=== PATIENT | male | born 1965 | race Caucasian/White ===

== ENCOUNTER 2023-08-15 14:33 | Outpatient (AMB) | payer BC, SELFPAY ==
--- NOTE | 2023-08-15 14:41 | A.OFFPC_ITS ---
Vital Signs 08/15/23 14:53 08/15/23 15:05 Height 5 ft 7.56 in Weight 263 lb 2 oz BMI 40.5 BP 158/86 H 148/86 H Blood Pressure Location Rt brachial Rt brachial Position Sitting Sitting Respiration 14 Pulse 99 Pulse Source Pulse Oximeter Pulse Oximetry (%) 96 Oxygen Delivery Method Room Air Intake Visit Reasons: EST CARE Intake Note: New patient visit Teletype Telegrapher Required: No Allergies No Known Allergies Allergy (Verified 08/15/23 14:41) Tobacco use date assessed: 08/15/23 Dental Screening Dental Screen Date: 08/15/23 Did you have a dental visit in the last 12 months?: No Did you have a dental problem in the last 6 months where you did not have access to dental care?: No Was dental information given to patient?: Yes HPI HPI Comments History of Present Illness Details The patient is a 58 year old male with a past medical history of prediabetes, hypertension, GERD/PUD, OA, insomnia, presenting for follow up Depression/Insomnia-On cymbalta 60mg daily. Tried trazodone. Diabetes-On metformin 1000mg daily. A1C 5.7% Cardiovascular -On metformin 1000mg daily. A1C 5.7%. Asthma-On symbicort 160/4.5 Tdap 07/2016 Colonoscopy 09/09/2016 [facility] Medical History (Updated 08/15/23 @ 15:42 by Jovanna Dahl MD) Type 2 diabetes mellitus Steatosis, liver Severe obesity Reactive airway disease Intervertebral disc disorder Lumbar radiculopathy Prediabetes Obstructive sleep apnea H/O peptic ulcer GERD (gastroesophageal reflux disease) Depression Benign essential HTN Asthma Arthritis Surgical History (Updated 08/15/23 @ 15:02 by Fiorella Ledezma CMA) History of bilateral knee replacement Family History (Updated 08/15/23 @ 15:04 by Fiorella Ledezma CMA) Mother Diabetes mellitus Kidney disease HTN (hypertension) Hypercholesteremia Father Heart attack HTN (hypertension) Hypercholesteremia Social History (Updated 08/15/23 @ 14:45 by Fiorella Ledezma CMA) Housing: House Patient Tobacco Use Status: Former Tobacco user Tobacco use type: Cigarette Years Smoked: Casual smoker e-Cigarette/Vaping Use: Never Used Second Hand Smoke Exposure: No Substance Use Type: Marijuana service: No Current occupational status: employed and retired Cognitive needs: No Hearing needs: Yes (tinnitus) Vision needs: Yes (reading glasses) Questionnaire PHQ-9 Over the last 2 weeks, how often have you been bothered by any of the following problems? 1. Little interest or pleasure in doing things: not at all 2. Feeling down, depressed, or hopeless: more than half the days 3. Trouble falling or staying asleep, or sleeping too much: several days 4. Feeling tired or having little energy: not at all 5. Poor appetite or overeating: not at all 6. Feeling bad about yourself - or that you are a failure or have let yourself or your family down: more than half the days 7. Trouble concentrating on things, such as reading the newspaper or watching television: not at all 8. Moving or speaking so slowly that other people could have noticed. Or the opposite - being so fidgety or restless that you have been moving around a lot more than usual: not at all 9. Thoughts that you would be better off or of hurting yourself in some way: not at all Total score: 5 Depression Screening Interpretation: Positive Depression Screening Done: Yes 27860 - PHQ-9 Billing: Yes Source: Developed by Drs. Jay Jauregui, Marisol Hobbs, Jaren Mari and colleagues, with an educational clive from [employer]. Thrive Questionnaire Date Thrive assessed: 08/15/23 I am a: Patient What is your living situation today?: I have a steady place to live Within the past 12 months, did the food you bought not last and you didn't have the money to get more?: Never true Within the past 12 months, did you worry whether your food would run out before you got money to buy more?: Never true Do you have trouble paying for medicines?: No Do you have trouble getting transportation to medical appointments?: No Do you have trouble paying your heating and electricity bill?: No Do you have trouble taking care of your child, family member or friend?: No Do you have trouble with day-to-day activities such as bathing, preparing meals, shopping, managing finances, etc.?: No Are you currently unemployed and looking for a job?: Yes Are you interested in more education?: No Please select the resources that you would like help with: Job search/training Currently or been in a relationship where the following occur: No concerns reported THRIVE Score: 0 AUDIT C Alcohol Use Questionnaire (AUDIT-C) 1. How often do you have a drink containing alcohol?: 4 or more times a week 2. How many drinks containing alcohol do you have on a typical day when you are drinking?: 5 or 6 3. How often do you have six or more drinks on one occasion?: Daily or almost daily Total Score: 10 MAGDALENA-7 AMB Questionnaire MAGDALENA-7 Date MAGDALENA - 7 assessed: 08/15/23 Feeling nervous, anxious, or on edge: 1 = Several days Not being able to stop or control worryin = Several days Worrying too much about different things: 1 = Several days Trouble relaxin = Several days Being so restless that it is hard to sit still: 0 = Not at all Becoming easily annoyed or irritable: 1 = Several days Feeling afraid as if something awful might happen: 0 = Not at all Total MAGDALENA-7 score (0-4 normal; 5-9 mild; 10-14 moderate; 15-21 severe): 5 Source: Developed by Drs. Jay Jauregui, Marisol Hobbs, Jaren Mari and colleagues, with an educational clive from [employer]. MAGDALENA-7 Assessment Billing MAGDALENA-7 Assessment Tool: MAGDALENA-7 Assessment 76379 ACT Questionnaire In the past 4 weeks, how much of the time did your asthma keep you from getting as much done at work, school or at home?: None of the time During the past 4 weeks, how often have you had shortness of breath?: Not at all During the past 4 weeks, how often did your asthma symptoms wake you up at night or earlier than usual in the morning?: Not at all During the past 4 weeks, how often have you had to use your rescue inhaler or nebulizer medication?: Not at all How would you rate your asthma control during the past 4 weeks?: Completely controlled ACT Interpretation: Negative Score: 25 Physical exam (Primary Care) Vital Signs: Last Vital Signs Pulse 99 08/15/23 14:53 Resp 14 08/15/23 14:53 BP 148/86 H 08/15/23 15:05 Pulse Ox 96 08/15/23 14:53 Oxygen Delivery Method Room Air 08/15/23 14:53 BMI result Body Mass Index 40.5 Tobacco/Smoking Status: Tobacco use Status Tobacco use date assessed 08/15/23 08/15/23 15:06 Patient Tobacco Use Status Former Tobacco user 08/15/23 15:06 Tobacco use type Cigarette 08/15/23 15:06 e-Cigarette/Vaping Use Never Used 08/15/23 15:06 PHQ-9: PHQ-9 Score PHQ-9: Total score 5 08/15/23 16:42 Depression Screening Interpretation: Positive Thrive Assessment: Date of Thrive Assessment Date Thrive assessed 08/15/23 08/15/23 15:06 Currently or been in a relationship where the following occur: No concerns reported Results AMB Hemoglobin A1c AMB Hemoglobin A1c 6.1 % Last Edit by Fiorella Ledezma CMA on 08/15/23 16:43 Results Reviewed Results Reviewed: Laboratory Last Values Hgb A1c (Clinic) 6.1 % (4.0-6.0) H 08/15/23 16:41 Assessment and Plan Assessment & Plan Orders: Orders AMB Hemoglobin A1c 08/15/23 E11.9 - Type 2 diabetes mellitus without complications Referrals Urology Referral N48.6 - Induration penis plastica Medications: New duloxetine 120 mg (2 x 60 mg) PO DAILY 180 caps 3RF 90 days budesonide-formoterol 160-4.5 mcg/actuation (Breyna) 2 puffs inhalation BID 30.6 grams 3RF celecoxib 200 mg PO DAILY 90 caps 3RF 90 days montelukast 10 mg PO DAILY 90 tabs 3RF 90 days omeprazole 20 mg PO DAILY 90 caps 3RF 90 days lisinopril 20 mg PO DAILY 90 tabs 3RF 90 days cyclobenzaprine 10 mg (2 x 5 mg) PO .nightly PRN 60 tabs 11RF muscle spasm 30 days metformin ER 500 mg PO BID 180 tabs 3RF 90 days tirzepatide (Mounjaro) 2.5 mg (0.5 mL) subcut QWEEK 2 mL 0RF 4 weeks ondansetron 4 mg PO Q8H PRN 60 tabs 0RF nausea and vomiting 30 days Refilled lorazepam 0.5 mg PO BID PRN 60 tabs 0RF anxiety 30 days rosuvastatin 10 mg PO DAILY 90 tabs 3RF 90 days hydrochlorothiazide 50 mg PO DAILY 90 tabs 3RF Coding Level of Care Code Est Pt Level 5 (76649) Complex EM visit Add On G2211 Additional Codes MAGDALENA-7 Assessment Billing - MAGDALENA-7 Assessment Tool: MAGDALENA-7 Assessment 48026 ([id number]) Time Spent (min) 55
[2023-08-15 14:53] VITALS: BP 158/86; PULSE 99; RESP 14; O2SAT 96; BMI 40.5
[2023-08-15 15:05] VITALS: BP 148/86
== END 2023-08-15 16:30 | disposition home or self-care (01) ==
PROVIDERS: Visit Provider Internal Medicine
DX: E11.9 Type 2 diabetes mellitus without complications (principal)
CPT/HCPCS: 83036; 99215

== ENCOUNTER 2023-10-15 15:31 | Outpatient (AMB) | payer BC, SELFPAY ==
--- NOTE | 2023-10-15 15:38 | MHC.OFFVIS ---
Intake Visit Reasons: Peyronies disease Intake Note: New patient is present for Peyronies Disease Recent A1C- 6.1 Wood Preparation Supervisor Required: No Allergies No Known Allergies Allergy (Verified 08/15/23 14:41) Medication List - Last Reconciled 10/15/23 by Antony Chow MD blood sugar diagnostic (Pinion.ggTouch Ultra Test strips) As directed budesonide-formoterol 160-4.5 mcg/actuation (Breyna) 2 puffs inhalation BID celecoxib 200 mg PO DAILY 90 days cyclobenzaprine 10 mg (2 x 5 mg) PO .nightly PRN 30 days duloxetine 120 mg (2 x 60 mg) PO DAILY 90 days hydrochlorothiazide 50 mg PO DAILY lisinopril 20 mg PO DAILY 90 days lorazepam 0.5 mg PO BID PRN 30 days metformin ER 500 mg PO BID 90 days montelukast 10 mg PO DAILY 90 days omeprazole 20 mg PO DAILY 90 days ondansetron 4 mg PO Q8H PRN 30 days pentoxifylline ER 400 mg PO BID 90 days rosuvastatin 10 mg PO DAILY 90 days tadalafil 5 mg PO DAILY 90 days tirzepatide (Mounjaro) 5 mg (0.5 mL) subcut QWEEK vitamin E (dl, acetate) 450 mg PO DAILY 90 days HPI Comments Details: Dale is a pleasant male. He is a patient of Dr. Dahl. He is seen for the following urologic conditions - Peyronie's disease Initial evaluation for complaint of Peyronie's disease Peyronie's disease Primary complaint is - penile curvature with some degree of erectile dysfunction. Is able to obtain erection but can not maintain The problem has been present - starting 2020 At this time his erections - as sufficient for penetrative intercourse. Does not last till ejaculation. [place] has - can be completed but with some degree of limitation Associated symptoms include penile pain resolved penile discharge No Associated conditions - type 2 diabetes Evaluations - palpable plaque at base on dorsal surface. Planned penile ultrasound Prior management includes - Therapeutic plan - conservative therapy with antioxidants and penile pump - pump demonstrated in office [facility] Medical History (Updated 10/15/23 @ 16:44 by Antony Chow MD) Type 2 diabetes mellitus Steatosis, liver Severe obesity Reactive airway disease Intervertebral disc disorder Lumbar radiculopathy Prediabetes Obstructive sleep apnea H/O peptic ulcer GERD (gastroesophageal reflux disease) Depression Benign essential HTN Asthma Arthritis Surgical History (Updated 08/15/23 @ 15:02 by Fiorella Ledezma CMA) History of bilateral knee replacement Family History (Updated 08/15/23 @ 15:04 by Fiorella Ledezma CMA) Mother Diabetes mellitus Kidney disease HTN (hypertension) Hypercholesteremia Father Heart attack HTN (hypertension) Hypercholesteremia Social History (Updated 08/15/23 @ 14:45 by Fiorella Ledezma CMA) Housing: House Patient Tobacco Use Status: Former Tobacco user Tobacco use type: Cigarette Years Smoked: Casual smoker e-Cigarette/Vaping Use: Never Used Second Hand Smoke Exposure: No Substance Use Type: Marijuana service: No Current occupational status: employed and retired Cognitive needs: No Hearing needs: Yes (tinnitus) Vision needs: Yes (reading glasses) Review of Systems Const Denies chills and Denies fever(s) Card Reports no additional complaints and Denies syncope Resp Denies cough GI Denies abdominal pain and Denies heartburn Reports as per HPI and Denies change in libido Neuro Denies syncope Psych Denies change in libido Endo Denies change in libido Physical Exam Const General: cooperative, healthy appearing, comfortable and no acute distress Orientation/consciousness: patient oriented x3 HEENT Face and sinus: Yes normal facial exam Mouth: moist mucous membranes Neck Neck: Yes normal visual inspection, Yes full ROM and Yes trachea midline Chest Chest palpation & inspection: normal inspection of the chest Resp Effort & Inspection: normal respiratory effort, able to speak in complete sentences and no respiratory distress GI Inspection: Yes normal to inspection Back/Spine/Pelvis Cervical Spine: normal cervical lordosis Thoracic/Lumbar Spine: thoracic and lumbar spine normal to inspection Skin General skin exam: no rashes or lesions noted Neuro General: patient oriented x3, gait normal, tone normal and moves all extremities Extrem General: Yes normal to inspection and Yes capillary refill normal Assessment & Plan Assessment & Plan (1) Peyronie's disease: Code(s): N48.6 - Induration penis plastica Category: Medical (2) Erectile dysfunction associated with type 2 diabetes mellitus: Code(s): E11.69 - Type 2 diabetes mellitus with other specified complication; N52.1 - Erectile dysfunction due to diseases classified elsewhere Category: Medical Plan Plan penile ultrasound Initiate tadalafil, pentoxifylline and vitamin-E Six-month follow-up Link for vacuum pump provided Orders: Orders US penile Today N48.6 - Induration penis plastica Medications: New tadalafil 5 mg PO DAILY 90 days 90 tabs 1RF sexual activity N32.0 - Bladder-neck obstruction, N48.6 - Induration penis plastica, N52.01 - Erectile dysfunction due to arterial insufficiency pentoxifylline ER administer with meals 400 mg PO BID 90 days 180 tabs 1RF N48.6 - Induration penis plastica vitamin E (dl, acetate) 450 mg PO DAILY 90 days 90 caps 1RF N30.40 - Irradiation cystitis without hematuria, N48.6 - Induration penis plastica Coding Level of Care Code New Pt Level 4 (00884) Diagnoses Peyronie's disease N48.6 Erectile dysfunction associated with type 2 diabetes mellitus E11.69; N52.1
== END 2023-10-15 16:26 | disposition home or self-care (01) ==
PROVIDERS: PCP Internal Medicine; Visit Provider Urology
DX: N48.6 Induration penis plastica (principal); E11.69 Type 2 diabetes mellitus with other specified complication; N52.1 Erectile dysfunction due to diseases classified elsewhere
CPT/HCPCS: 99204

== ENCOUNTER → 2023-10-15 15:31 | Outpatient (BNVA) | payer BC, SELFPAY | PROVIDERS: PCP Internal Medicine; Visit Provider Urology ==

== ENCOUNTER 2024-01-19 08:55 | Outpatient (AMB) | payer BC, SELFPAY ==
--- NOTE | 2024-01-19 09:05 | A.OFFPC_ITS ---
Vital Signs 01/19/24 09:12 Height 5 ft 7.56 in Weight 265 lb BMI 40.8 BP 138/74 Blood Pressure Location Rt brachial Position Sitting Pulse 92 Pulse Source Pulse Oximeter Pulse Oximetry (%) 96 Oxygen Delivery Method Room Air Intake Visit Reasons: follow up Intake Note: Follow up Retail Assistant Required: No Allergies No Known Allergies Allergy (Verified 01/19/24 09:12) Tobacco use date assessed: 08/15/23 Dental Screening Dental Screen Date: 08/15/23 HPI HPI Comments History of Present Illness Details The patient is a 58 year old male with a past medical history of prediabetes, hypertension, GERD/PUD, OA, insomnia, presenting for follow up Depression/Insomnia-On cymbalta. Has lorazepam prn anxiety, sleep Diabetes-On mounjaro. A1C has been excellent. A1C 5.7%. Gets eye exams-utd Cardiovascular -On lisinopril, crestor, hctz Urologic-Following with [facility] urology for PD Asthma-On breyna. Breathing is stable. Tdap 07/2016 Colonoscopy 09/09/2016 ROS CONSTITUTIONAL: Denies weight loss, fever and chills. HEENT: Denies changes in vision and hearing. RESPIRATORY: Denies SOB and cough. CV: Denies palpitations and CP GI: Denies abdominal pain, nausea, vomiting and diarrhea. : Denies dysuria and urinary frequency. MSK: Denies new myalgia and joint pain. SKIN: Denies rash and pruritus. NEUROLOGICAL: Denies headache PSYCHIATRIC: Denies recent changes in mood. PHYSICAL EXAM: GENERAL: Alert and oriented x 3. NAD EYES: EOMI. Anicteric. HENT: Moist mucous membranes. No scleral icterus. No cervical lymphadenopathy. LUNGS: Clear to auscultation bilaterally. CARDIOVASCULAR: Regular rate and rhythm. No murmur. No JVD. ABDOMEN: Soft, non-tender +bs EXTREMITIES: No edema. Non-tender. SKIN: No rashes or lesions. Warm. NEUROLOGIC: No focal neurological deficits. CN II-XII grossly intact PSYCHIATRIC: Cooperative. Appropriate mood and affect [facility] Medical History (Updated 01/26/24 @ 00:58 by Jovanna Dahl MD) Type 2 diabetes mellitus Steatosis, liver Severe obesity Reactive airway disease Intervertebral disc disorder Lumbar radiculopathy Prediabetes Obstructive sleep apnea H/O peptic ulcer GERD (gastroesophageal reflux disease) Depression Benign essential HTN Asthma Arthritis Surgical History (Updated 08/15/23 @ 15:02 by Fiorella Ledezma CMA) History of bilateral knee replacement Family History (Updated 08/15/23 @ 15:04 by Fiorella Ledezma CMA) Mother Diabetes mellitus Kidney disease HTN (hypertension) Hypercholesteremia Father Heart attack HTN (hypertension) Hypercholesteremia Social History (Updated 08/15/23 @ 14:45 by Fiorella Ledezma CMA) Housing: House Patient Tobacco Use Status: Former Tobacco user Tobacco use type: Cigarette Years Smoked: Casual smoker e-Cigarette/Vaping Use: Never Used Second Hand Smoke Exposure: No Substance Use Type: Marijuana service: No Current occupational status: employed and retired Cognitive needs: No Hearing needs: Yes (tinnitus) Vision needs: Yes (reading glasses) Questionnaire Thrive Questionnaire Date Thrive assessed: 01/14/24 I am a: Patient What is your living situation today?: I have a steady place to live Within the past 12 months, did the food you bought not last and you didn't have the money to get more?: I choose not to answer this question Within the past 12 months, did you worry whether your food would run out before you got money to buy more?: I choose not to answer this question Do you have trouble paying for medicines?: I choose not to answer this question Do you have trouble getting transportation to medical appointments?: I choose not to answer this question Do you have trouble paying your heating and electricity bill?: I choose not to answer this question Do you have trouble taking care of your child, family member or friend?: I choose not to answer this question Do you have trouble with day-to-day activities such as bathing, preparing meals, shopping, managing finances, etc.?: I choose not to answer this question Are you currently unemployed and looking for a job?: I choose not to answer this question Are you interested in more education?: I choose not to answer this question Please select the resources that you would like help with: None Currently or been in a relationship where the following occur: I choose not to answer THRIVE Score: 0 AUDIT C Alcohol Use Questionnaire (AUDIT-C) 1. How often do you have a drink containing alcohol?: Never 2. How many drinks containing alcohol do you have on a typical day when you are drinking?: 1 or 2 3. How often do you have six or more drinks on one occasion?: Never Total Score: 0 MAGDALENA-7 AMB Questionnaire MAGDALENA-7 Date MAGDALENA - 7 assessed: 08/15/23 Feeling nervous, anxious, or on edge: 3 = Nearly every day Not being able to stop or control worryin = Not at all Worrying too much about different things: 0 = Not at all Trouble relaxin = Not at all Being so restless that it is hard to sit still: 0 = Not at all Becoming easily annoyed or irritable: 0 = Not at all Feeling afraid as if something awful might happen: 0 = Not at all Total MAGDALENA-7 score (0-4 normal; 5-9 mild; 10-14 moderate; 15-21 severe): 3 Source: Developed by Drs. Jay Jauregui, Marisol Hobbs, Jaren Mari and colleagues, with an educational clive from [employer]. Physical exam (Primary Care) Vital Signs: Last Vital Signs Pulse 92 01/19/24 09:12 BP 138/74 01/19/24 09:12 Pulse Ox 96 01/19/24 09:12 Oxygen Delivery Method Room Air 01/19/24 09:12 BMI result Body Mass Index 40.8 Tobacco/Smoking Status: Tobacco use Status Tobacco use date assessed 08/15/23 01/19/24 09:06 Patient Tobacco Use Status Former Tobacco user 01/19/24 09:06 Tobacco use type Cigarette 01/19/24 09:06 e-Cigarette/Vaping Use Never Used 01/19/24 09:06 Thrive Assessment: Date of Thrive Assessment Date Thrive assessed 01/14/24 01/19/24 09:06 Currently or been in a relationship where the following occur: I choose not to answer Coding Level of Care Code Est Pt Level 4 (76110) Diagnoses Type 2 diabetes mellitus with other circulatory complication, without long-term current use of insulin E11.59 Diabetes mellitus complication detail: with other circulatory complications Diabetes mellitus complication status: with circulatory complication Diabetes mellitus fpc insulin use: without fpc use Erectile dysfunction associated with type 2 diabetes mellitus E11.69; N52.1 Severe obesity E66.01 Assessment & Plan Assessment & Plan (1) Type 2 diabetes mellitus: Code(s): E11.9 - Type 2 diabetes mellitus without complications Category: Medical Qualifiers: Diabetes mellitus complication detail: with other circulatory complications Diabetes mellitus complication status: with circulatory complication Diabetes mellitus terminologist insulin use: without terminologist use Qualified Code(s): E11.59 - Type 2 diabetes mellitus with other circulatory complications Plan: controlled on current medicaitons Efforts toward weight loss Annual eye exams (2) Erectile dysfunction associated with type 2 diabetes mellitus: Code(s): E11.69 - Type 2 diabetes mellitus with other specified complication; N52.1 - Erectile dysfunction due to diseases classified elsewhere Category: Medical Plan: continue urology follow up (3) Severe obesity: Code(s): E66.01 - Morbid (severe) obesity due to excess calories Category: Medical Plan: Continue GLP therapy Orders: Orders Comprehensive Met. Panel 01/19/24 E11.9 - Type 2 diabetes mellitus without complications Complete Blood Count Auto Diff 01/19/24 E11.9 - Type 2 diabetes mellitus without complications Hemoglobin A1c 01/19/24 E11.9 - Type 2 diabetes mellitus without complications AMB Hemoglobin A1c 01/19/24 E11.9 - Type 2 diabetes mellitus without complications Medications: New Mounjaro (tirzepatide) 7.5 mg (0.5 mL) subcut QWEEK 6 mL 3RF 12 weeks NS E11.9 - Type 2 diabetes mellitus without complications
[2024-01-19 09:12] VITALS: BP 138/74; PULSE 92; O2SAT 96; BMI 40.8
== END 2024-01-19 09:34 | disposition home or self-care (01) ==
PROVIDERS: PCP Internal Medicine; Visit Provider Internal Medicine
DX: E11.59 Type 2 diabetes mellitus with other circulatory complications (principal); E11.69 Type 2 diabetes mellitus with other specified complication; E66.01 Morbid (severe) obesity due to excess calories; Z68.41 Body mass index [BMI] 40.0-44.9, adult; N52.1 Erectile dysfunction due to diseases classified elsewhere

== ENCOUNTER → 2024-01-19 08:55 | Outpatient (BNVA) | payer BC, SELFPAY | PROVIDERS: PCP Internal Medicine; Visit Provider Internal Medicine ==

== ENCOUNTER 2024-01-19 09:54 | Outpatient (REF) | payer BC, SELFPAY ==
[2024-01-19 11:20] LABS: MANUAL DIFF FLAG NO
[2024-01-19 11:26] LABS: Basophils Absolute Auto 0.1 X10*3/uL (0.0-0.2); Basophils Percent Auto 0.5 % (0-2); Eosinophils Absolute Auto 0.3 X10*3/uL (0.0-0.4); Eosinophils Percent Auto 2.3 % (0-4); Hematocrit 43.3 % (42.0-52.0); Hemoglobin 15.2 g/dl (14.0-18.0); Imm Gran Abs Auto 0.05 X10*3/uL (0.00-0.03); Imm Gran Pct Auto 0.4 % (0.0-0.4); Lymphocytes Absolute Auto 1.8 X10*3/uL (1.2-4.9); Lymphocytes Percent Auto 14.8 % (20-40); Mean Corpuscular HGB Conc 35.1 g/dl (31.0-36.0); Mean Corpuscular Volume 93.9 fL (80.0-98.0); Monocytes Percent Auto 7.7 % (2-11); Neutrophils Absolute Auto 9.2 x10*3/uL (2.0-8.3); Neutrophils Percent Auto 74.3 % (45-73); Platelet Count 163 X10*3/uL (160-400); Red Blood Count 4.61 X10*6/uL (4.60-5.80); Red Cell Distribution Width 12.5 % (11.0-16.0); White Blood Count 12.4 X10*3/uL (4.8-10.8)
[2024-01-19 11:32] LABS: Estimated Average Glucose 120 mg/dL; Hemoglobin A1C 156.7881 umol/L; Hemoglobin A1c % 5.8 % (<6.0); Total Hemoglobin (HGBA1C) 3888.9035 umol/L
[2024-01-19 12:08] LABS: Alanine Aminotransferase 59 U/L (0-40); Alkaline Phosphatase 63 U/L (39-117); Anion Gap 10 (12-20); Aspartate Amino Transferase 41 U/L (5-37); Bilirubin Total 0.5 mg/dL (0.0-1.0); Blood Urea Nitrogen 17 mg/dL (9-16); Calcium 8.9 mg/dL (8.4-10.2); Carbon Dioxide 29 mmol/L (22-29); Chloride 104 mmol/L (96-108); Estimated Glomerular Filt Rate > 60; Glucose Random 177 mg/dL (60-115); Potassium 3.6 mmol/L (3.3-5.1); Sodium 139 mmol/L (135-145); Total Protein 6.9 g/dL (6.5-8.0)
== END 2024-01-19 09:55 | disposition home or self-care (01) ==
LOC: HO.WFDLDS 09:54
PROVIDERS: Visit Provider Internal Medicine
DX: E11.9 Type 2 diabetes mellitus without complications (principal)
CPT/HCPCS: 36415; 80053; 83036; 85025

== ENCOUNTER → 2024-01-21 08:37 | Outpatient (BNV) | payer BC, SELFPAY | PROVIDERS: PCP Internal Medicine; Visit Provider Internal Medicine | DX: E11.9 Type 2 diabetes mellitus without complications (principal) | CPT/HCPCS: 83036 ==

== ENCOUNTER 2024-05-10 11:05 | Outpatient (AMB) | payer BC, SELFPAY ==
--- NOTE | 2024-05-10 11:08 | MHC.PC.OV ---
Vital Signs 05/10/24 11:19 Height 5 ft 7.5 in Weight 263 lb 4 oz BMI 40.6 BP 128/84 Blood Pressure Location Lt brachial Position Sitting Respiration 16 Pulse 93 Pulse Source Pulse Oximeter Pulse Oximetry (%) 94 Oxygen Delivery Method Room Air Intake Visit Reasons: PE Intake Note: Physical. Needs note for work. Refill on Bre[facility] Psych Nurse Required: No Allergies No Known Allergies Allergy (Verified 05/10/24 11:13) Tobacco use date assessed: 05/10/24 Dental Screening Dental Screen Date: 08/15/23 HPI HPI Comments History of Present Illness Details The patient is a 58 year old male with a past medical history of prediabetes, ANTIONE, hypertension, GERD/PUD, OA, insomnia, presenting for physical exam Depression/Insomnia-On cymbalta. Has lorazepam prn anxiety, sleep. Sleep has been terrible. The lorazepam is not working. Trazodone, lunesta and ambien have not worked in the past Diabetes-On Belly BallotunGTxcelro. A1C has been excellent. A1C 5.7%. Gets eye exams-utd Cardiovascular -On lisinopril, crestor, hctz Urologic-Following with [facility] [place] for PD Asthma-On breyna. Breathing is stable. Tdap 07/2016 Colonoscopy 09/09/2016 ROS CONSTITUTIONAL: Denies weight loss, fever and chills. HEENT: Denies changes in vision and hearing. RESPIRATORY: Denies SOB and cough. CV: Denies palpitations and CP GI: Denies abdominal pain, nausea, vomiting and diarrhea. : Denies dysuria and urinary frequency. MSK: Denies new myalgia and joint pain. SKIN: Denies rash and pruritus. NEUROLOGICAL: Denies headache PSYCHIATRIC: Denies recent changes in mood. PHYSICAL EXAM: GENERAL: Alert and oriented x 3. NAD EYES: EOMI. Anicteric. HENT: Moist mucous membranes. No scleral icterus. No cervical lymphadenopathy. LUNGS: Clear to auscultation bilaterally. CARDIOVASCULAR: Regular rate and rhythm. No murmur. No JVD. ABDOMEN: Soft, non-tender +bs EXTREMITIES: No edema. Non-tender. SKIN: No rashes or lesions. Warm. NEUROLOGIC: No focal neurological deficits. CN II-XII grossly intact PSYCHIATRIC: Cooperative. Appropriate mood and affect [facility] Medical History (Updated 05/10/24 @ 11:55 by Jovanna Dahl MD) Type 2 diabetes mellitus Steatosis, liver Severe obesity Reactive airway disease Intervertebral disc disorder Lumbar radiculopathy Prediabetes Obstructive sleep apnea H/O peptic ulcer GERD (gastroesophageal reflux disease) Depression Benign essential HTN Asthma Arthritis Surgical History History of bilateral knee replacement Family History Mother Diabetes mellitus Kidney disease HTN (hypertension) Hypercholesteremia Father Heart attack HTN (hypertension) Hypercholesteremia Social History (Updated 05/10/24 @ 11:27 by Fiorella Ledezma CMA) Housing: House Alcohol intake: current Patient Tobacco Use Status: Former Tobacco user Tobacco use type: Cigarette Years Smoked: Casual smoker e-Cigarette/Vaping Use: Never Used Second Hand Smoke Exposure: No Substance Use Type: Marijuana service: No Current occupational status: employed and retired Cognitive needs: No Hearing needs: Yes (tinnitus) Vision needs: Yes (reading glasses) Questionnaire Thrive Questionnaire Date Thrive assessed: 05/10/24 I am a: Patient What is your living situation today?: I have a steady place to live Within the past 12 months, did the food you bought not last and you didn't have the money to get more?: I choose not to answer this question Within the past 12 months, did you worry whether your food would run out before you got money to buy more?: Never true Do you have trouble paying for medicines?: No Do you have trouble getting transportation to medical appointments?: No Do you have trouble paying your heating and electricity bill?: No Do you have trouble taking care of your child, family member or friend?: No Do you have trouble with day-to-day activities such as bathing, preparing meals, shopping, managing finances, etc.?: No Are you currently unemployed and looking for a job?: Yes Are you interested in more education?: No Please select the resources that you would like help with: None Currently or been in a relationship where the following occur: No concerns reported THRIVE Score: 0 AUDIT C Alcohol Use Questionnaire (AUDIT-C) 1. How often do you have a drink containing alcohol?: Never 2. How many drinks containing alcohol do you have on a typical day when you are drinking?: 1 or 2 3. How often do you have six or more drinks on one occasion?: Never Total Score: 0 MAGDALENA-7 AMB Questionnaire MAGDALENA-7 Date MAGDALENA - 7 assessed: 05/10/24 Feeling nervous, anxious, or on edge: 1 = Several days Not being able to stop or control worryin = Several days Worrying too much about different things: 3 = Nearly every day Trouble relaxin = Nearly every day Being so restless that it is hard to sit still: 0 = Not at all Becoming easily annoyed or irritable: 1 = Several days Feeling afraid as if something awful might happen: 0 = Not at all Total MAGDALENA-7 score (0-4 normal; 5-9 mild; 10-14 moderate; 15-21 severe): 9 Source: Developed by Drs. Jay Jauregui, Marisol Hobbs, Jaren Mari and colleagues, with an educational clive from [employer]. MAGDALENA-7 Assessment Billing MAGDALENA-7 Assessment Tool: MAGDALENA-7 Assessment 77011 Physical exam (Primary Care) Vital Signs: Last Vital Signs Pulse 93 05/10/24 11:19 Resp 16 05/10/24 11:19 BP 128/84 05/10/24 11:19 Pulse Ox 94 05/10/24 11:19 Oxygen Delivery Method Room Air 05/10/24 11:19 BMI result Body Mass Index 40.6 Tobacco/Smoking Status: Tobacco use Status Tobacco use date assessed 05/10/24 05/10/24 11:08 Patient Tobacco Use Status Former Tobacco user 05/10/24 11:27 Tobacco use type Cigarette 05/10/24 11:27 e-Cigarette/Vaping Use Never Used 05/10/24 11:27 Thrive Assessment: Date of Thrive Assessment Date Thrive assessed 05/10/24 05/10/24 11:08 Currently or been in a relationship where the following occur: No concerns reported Results AMB Hemoglobin A1c AMB Hemoglobin A1c 5.7 % Last Edit by Fiorella Ledezma CMA on 05/10/24 11:31 Results Reviewed Results Reviewed: Laboratory Last Values Hgb A1c (Clinic) 5.7 % (4.0-6.0) 05/10/24 11:28 Coding Diagnoses Physical exam Z00.00 Type 2 diabetes mellitus with other circulatory complication, without long-term current use of insulin E11.59 Diabetes mellitus complication detail: with other circulatory complications Diabetes mellitus complication status: with circulatory complication Diabetes mellitus retirement insulin use: without retirement use Obstructive sleep apnea G47.33 Severe obesity E66.01 Erectile dysfunction associated with type 2 diabetes mellitus E11.69; N52.1 Additional Codes MAGDALENA-7 Assessment Billing - MAGDALENA-7 Assessment Tool: MAGDALENA-7 Assessment 48196 ([id number]) Assessment & Plan Assessment & Plan (1) Physical exam: Code(s): Z00.00 - Encounter for general adult medical examination without abnormal findings (2) Type 2 diabetes mellitus: Code(s): E11.9 - Type 2 diabetes mellitus without complications Category: Medical Qualifiers: Diabetes mellitus complication detail: with other circulatory complications Diabetes mellitus complication status: with circulatory complication Diabetes mellitus intermediate project manager insulin use: without intermediate project manager use Qualified Code(s): E11.59 - Type 2 diabetes mellitus with other circulatory complications (3) Obstructive sleep apnea: Code(s): G47.33 - Obstructive sleep apnea (adult) (pediatric) Category: Medical (4) Severe obesity: Code(s): E66.01 - Morbid (severe) obesity due to excess calories Category: Medical (5) Erectile dysfunction associated with type 2 diabetes mellitus: Code(s): E11.69 - Type 2 diabetes mellitus with other specified complication; N52.1 - Erectile dysfunction due to diseases classified elsewhere Category: Medical Plan 58 y/o for physical exam Interval history reviewed Chronic medical conditions reviewed Medications reconciled DM2 well controlled Orders: Orders Monotest 05/10/24 M25.50 - Pain in unspecified joint, R53.83 - Other fatigue Complete Blood Count no Diff 05/10/24 M25.50 - Pain in unspecified joint, R53.83 - Other fatigue Pathologist Review - CBC 05/10/24 M25.50 - Pain in unspecified joint, R53.83 - Other fatigue TSH reflex Free T4 05/10/24 R53.83 - Other fatigue AMB Hemoglobin A1c 05/10/24 E11.59 - Type 2 diabetes mellitus with other circulatory complications Lyme IgG/IgM w/reflex to WB 05/10/24 M25.50 - Pain in unspecified joint, R53.83 - Other fatigue Erythrocyte Sedimentation Rate 05/10/24 M25.50 - Pain in unspecified joint, R53.83 - Other fatigue Vitamin B12 and Folate 05/10/24 M25.50 - Pain in unspecified joint, R53.83 - Other fatigue Comprehensive Met. Panel 05/10/24 M25.50 - Pain in unspecified joint, M25.511 - Pain in right shoulder, M25.512 - Pain in left shoulder CRP High Sensitivity 05/10/24 G62.9 - Polyneuropathy, unspecified Referrals Orthopedics Referral M25.511 - Pain in right shoulder, M25.512 - Pain in left shoulder Rheumatology Referral M25.50 - Pain in unspecified joint, M25.511 - Pain in right shoulder, M25.512 - Pain in left shoulder Medications: New Ozempic (semaglutide) 2 mg (0.75 mL) subcut QWEEK 9 mL 3RF NS pregabalin (Lyrica) 150 mg PO BID 180 caps 3RF temazepam 15 mg PO BEDTIME PRN 90 caps 3RF sleep Discontinued Mounjaro (tirzepatide) Discontinued Reason: Doctor's Order 7.5 mg (0.5 mL) subcut QWEEK 12 weeks 6 mL 3RF NS E11.9 - Type 2 diabetes mellitus without complications
[2024-05-10 11:19] VITALS: BP 128/84; PULSE 93; RESP 16; O2SAT 94; BMI 40.6
== END 2024-05-10 11:58 | disposition home or self-care (01) ==
LOC: HO.HMCFM 11:06
PROVIDERS: PCP Internal Medicine; Visit Provider Internal Medicine
DX: E11.59 Type 2 diabetes mellitus with other circulatory complications (principal)

== ENCOUNTER → 2024-05-10 11:05 | Outpatient (BNVA) | payer BC, SELFPAY | PROVIDERS: PCP Internal Medicine; Visit Provider Internal Medicine | DX: Z00.00 Encounter for general adult medical examination without abnormal findings (principal); G47.33 Obstructive sleep apnea (adult) (pediatric); I10 Essential (primary) hypertension; K21.9 Gastro-esophageal reflux disease without esophagitis; M19.90 Unspecified osteoarthritis, unspecified site; G47.00 Insomnia, unspecified; E66.01 Morbid (severe) obesity due to excess calories; E11.69 Type 2 diabetes mellitus with other specified complication; N52.1 Erectile dysfunction due to diseases classified elsewhere; E11.59 Type 2 diabetes mellitus with other circulatory complications; E11.42 Type 2 diabetes mellitus with diabetic polyneuropathy; M25.50 Pain in unspecified joint; R53.83 Other fatigue; M25.511 Pain in right shoulder; M25.512 Pain in left shoulder; Z68.41 Body mass index [BMI] 40.0-44.9, adult; Z79.899 Other long term (current) drug therapy | CPT/HCPCS: 83036; 96127 ==

== ENCOUNTER 2024-06-23 09:38 | Outpatient (REF) | payer BC, SELFPAY ==
[2024-06-23 11:34] LABS: Hematocrit 44.7 % (42.0-52.0); Hemoglobin 16.4 g/dl (14.0-18.0); Mean Corpuscular HGB Conc 36.7 g/dl (31.0-36.0); Mean Corpuscular Volume 89.9 fL (80.0-98.0); Mean Platelet Volume 10.3 fL (9.4-12.4); Platelet Count 184 X10*3/uL (160-400); Red Blood Count 4.97 X10*6/uL (4.60-5.80); Red Cell Distribution Width 12.7 % (11.0-16.0); White Blood Count 8.8 X10*3/uL (4.8-10.8)
[2024-06-23 11:47] LABS: Monotest Negative (Negative)
[2024-06-23 11:59] LABS: Alanine Aminotransferase 89 U/L (0-40); Albumin Level 4.3 g/dL (3.5-5.0); Alkaline Phosphatase 67 U/L (39-117); Anion Gap 12 (12-20); Aspartate Amino Transferase 56 U/L (5-37); Bilirubin Total 0.7 mg/dL (0.0-1.0); Blood Urea Nitrogen 21 mg/dL (9-16); Calcium 9.7 mg/dL (8.4-10.2); Carbon Dioxide 27 mmol/L (22-29); Chloride 105 mmol/L (96-108); Estimated Glomerular Filt Rate > 60; Glucose Random 96 mg/dL (60-115); Potassium 3.9 mmol/L (3.3-5.1); Sodium 140 mmol/L (135-145); Total Protein 7.1 g/dL (6.5-8.0)
[2024-06-23 12:18] LABS: TSH reflex Free T4 1.06 uIU/mL (0.32-4.0)
[2024-06-23 12:19] LABS: Folate 12.6 ng/mL (> or = 4.0); Vitamin B12 1132 pg/mL (200-900)
[2024-06-23 12:32] LABS: Erythrocyte Sedimentation Rate 6 MM/HR (0-15)
[2024-06-24 08:49] LABS: CRP High Sensitivity 2.5 mg/L
[2024-06-24 11:08] LABS: Lyme Abs Screen <0.90 index
== END 2024-06-23 09:39 | disposition home or self-care (01) ==
LOC: HO.WFDLDS 09:38
PROVIDERS: Visit Provider Internal Medicine
DX: G62.9 Polyneuropathy, unspecified (principal); R53.83 Other fatigue; M25.50 Pain in unspecified joint; M25.511 Pain in right shoulder; M25.512 Pain in left shoulder
CPT/HCPCS: 80053; 82607; 82746; 84443; 85027; 85652; 86141; 86308; 86617; 86618

== ENCOUNTER 2024-06-30 09:24 | Outpatient (REF) | payer BC, SELFPAY ==
--- OUTSIDE RECORDS SUMMARY | 2024-07-01 10:00 | XMS_ITS | Encounter Summary ---
Author Organization [facility] Address [address] [place] [address] Care Team Providers Care Cut And Print Machine Operator Name Role Phone Jovanna Ross MD Primary Care Provider Delmis Rodriguez MD Primary Care Provider Denisse makhushboo [facility], Pcp Primary Care Provider Skyla gong Encounter Details Date Type Department Care Team Description 02/03/2018 Orders Only Medicine/Pediatrics - [address] [id number] Pooja Hinojosa PA-C Elevated LFTs (Primary Dx); Need for prophylactic vaccination and inoculation against viral hepatitis Social History Tobacco Use Types Packs/Day Years Used Date Smoking Tobacco: Former Cigarettes Q uit: 02/18/1996 Smokeless Tobacco: Never Alcohol Use Standard Drinks/Week Comments Yes 30 (1 standard drink = 0.6 oz pu re alcohol) Sex Assigned at Date Recorded Not on file documented as of this encounter Plan of Treatment Not on file documented as of this encounter Results * US SOFT TISSUE ABDOMEN/BACK, LIMITED ABD (02/05/2018 9:42 AM EST) 02/05/2018 12:2 0 PM EST Impressions [facility] OTHER EXTERNAL - 02/05/2018 12:22 PM EST IMPRESSION: Hepatic steatosis. Splenomegaly. 2.4 x 1.9 x 1.4 cm septated right renal cyst. Narrative [facility] OTHER EXTERNAL - 02/05/2018 12:22 PM EST ABDOMINAL ULTRASOUND-Limited History: ??Elevated LFT. Comparison: None. FINDINGS: There is no evidence of cholelithiasis. The common bile duct is not dilated, measuring 3 mm. However, the mid and distal common duct is not visualized. The gallbladder wall is not thickened. No pericholecystic fluid is seen. No ascites are seen. The pancreas is obscured by overlying bowel gas. The liver measures 18.6 cm in length and demonstrates increased echotexture. No focal lesions are seen in the liver and there is no evidence of intrahepatic ductal dilation. Normal hepatopedal flow is seen in the main portal vein. No evidence of hydronephrosis, mass, or calculus was seen in the right kidney. ??The right kidney measures 12.7 cm in greatest length. There is a 2.4 x 1.9 x 1.4 cm septated cyst of the lower pole of the right kidney. Procedure Note Vandana Oakes MD - 02/05/2018 ABDOMINAL ULTRASOUND-Limited History: Elevated LFT. Comparison: None. FINDINGS: There is no evidence of cholelithiasis. The common bile duct isnot dilated, measuring 3 mm. However, the mid and distal common duct is not visualized.The gallbladder wall is not thickened. No pericholecystic fluid is seen. No ascites areseen. The pancreas is obscured by overlying bowel gas. The liver measures 18.6 cm in length and demonstrates increasedechotexture. No focal lesions are seen in the liver and there is no evidence of intrahepatic ductaldilation. Normal hepatopedal flow is seen in the main portal vein. No evidence of hydronephrosis, mass, or calculus was seen in the rightkidney. The right kidney measures 12.7 cm in greatest length. There is a 2.4 x 1.9 x 1.4 cm septated cyst of the lower pole of the rightkidney. IMPRESSION IMPRESSION: Hepatic steatosis. Splenomegaly. 2.4 x 1.9 x 1.4 cm septated right renal cyst. Pooja Hinojosa PA-C ULTRASOUND [facility] OTHER EXTERNAL documented in this encounter Visit Diagnoses Diagnosis Elevated LFTs- Primary Other abnormal blood chemistry Need for prophylactic vaccination and inoculation against viral hepatitis Elevated LFTs Other abnormal blood chemistry documented in this encounter Care Teams Cut And Print Machine Operator Relationship Specialty Start Date End Date Jovanna Ross MD PCP - General Internal Medicine 02/27/17 05/28/20 Delmis Rico MD PCP - General Internal Medicine 05/29/20 03/26/21 [facility], Pcp PCP - General Internal Medicine 03/27/21 documented as of this encounter
--- OUTSIDE RECORDS SUMMARY | 2024-07-01 10:00 | XMS_ITS | Encounter Summary ---
Author Organization [facility] Address [address] [place] [address] Care Team Providers Care Chaplain Name Role Phone Jovanna Ross MD Primary Care Provider Delmis Rodriguez MD Primary Care Provider Denisse Acosta, Pcp Primary Care Provider Skyla gong Encounter Details Date Type Department Care Team Description 03/09/2018 [facility] Medical Records [address] [place] [address] Social History Tobacco Use Types Packs/Day Years Used Date Smoking Tobacco: Former Cigarettes Q uit: 02/18/1996 Smokeless Tobacco: Never Alcohol Use Standard Drinks/Week Comments Yes 30 (1 standard drink = 0.6 oz pu re alcohol) Sex Assigned at Date Recorded Not on file documented as of this encounter Plan of Treatment Not on file documented as of this encounter Visit Diagnoses Not on filedocumented in this encounter Care Teams Chaplain Relationship Specialty Start Date End Date Jovanna Ross MD PCP - General Internal Medicine 02/27/17 05/28/20 Delmis Rico MD PCP - General Internal Medicine 05/29/20 03/26/21 Karla, Pcp PCP - General Internal Medicine 03/27/21 documented as of this encounter
--- OUTSIDE RECORDS SUMMARY | 2024-07-01 10:00 | XMS_ITS | Encounter Summary ---
Author Organization [facility] Address [address] [place] [address] Care Team Providers Care Portrait Painter Name Role Phone Delmis Rico MD Primary Care Provider [facility], Pcp Primary Care Provider Unavailabl e Reason for Visit * Reason Onset Date Comments Prior Authorization 06/20/2020 Encounter Details Date Type Department Care Team Description 06/20/2020 Telephone Medicine/Pediatrics - [address] [phone] Delmis Rico MD Prior Authorization Social History Tobacco Use Types Packs/Day Years Used Date Smoking Tobacco: Former Cigarettes Q uit: 02/18/1996 Smokeless Tobacco: Never Alcohol Use Standard Drinks/Week Comments Yes 30 (1 standard drink = 0.6 oz pu re alcohol) Sex Assigned at Date Recorded Not on file documented as of this encounter Miscellaneous Notes * Telephone Encounter - Tayla Osorio - 06/28/2020 12:23 PM EDT Pt followed [facility] * Telephone Encounter - Eri Aggarwal PA-C - 06/28/2020 12:[address] Dahl no longer with [facility] and PCP is not in office this week. Pt has not had a visit since August 2019. I will forward to [facility] staff to call patient to change PCP and make appt. For medication review. Can be with care tea member for faster access. also sent back to prior Auth dept. As FYI * Telephone Encounter - Mila Durand M.A. - 06/28/2020 12:05 PM EDT Celebrex was denied by pts insurance Please reply back to p [phone] Prior Auth pool Mila Durand M.A. [facility] Prior Authorizations Ext [phone] Fax: [phone] reply back to p [phone] Prior Auth pool * Telephone Encounter - Mila Durand M.A. - 06/22/2020 9:45 AM EDT Prior auth done via covermymeds for celebrex Continuation of therapy Osteoarthritis Tried ibu 800mg tid, ineffective * Telephone Encounter - Patricia Bishop - 06/20/2020 2:25 PM EDT Prior Authorization for Medication-do not complete and send this encounter unless you have the fax from the pharmacy. Is this a Cover My Meds request: Yes -- Varela Code [id number] Name of Medication Celecoxib Dose of Medication 200MG Capsules What is the RX # from the faxed refill? Not listed How does patient take this med? Not listed What Pharmacy did the fax come from: [facility] fax #: [phone] [employer] Party Information from fax: What Prescription Plan does the patient have? Not listed BIN/PCN if applicable: Not listed Cardholder ID: Not listed Person Code: Not listed Relationship Code: Not listed Help desk phone: Not listed documented in this encounter Plan of Treatment Not on file documented as of this encounter Visit Diagnoses Not on filedocumented in this encounter Care Teams Portrait Painter Relationship Specialty Start Date End Date Delmis Rico MD PCP - General Internal Medicine 05/29/20 03/26/21 [facility], Pcp PCP - General Internal Medicine 03/27/21 documented as of this encounter
--- OUTSIDE RECORDS SUMMARY | 2024-07-01 10:00 | XMS_ITS | Encounter Summary ---
Author Organization [facility] Address [address] [place] [address] Care Team Providers Care Reference Services Head Name Role Phone Delmis Rico MD Primary Care Provider Denisse Acosta, Pcp Primary Care Provider Unavailabl e Reason for Visit * Reason Onset Date Comments refill request 05/29/2020 Encounter Details Date Type Department Care Team Description 05/29/2020 Refill Adult Medicine [address] [address] Delmis Rico MD refill request Social History Tobacco Use Types Packs/Day Years [...] on filedocumented in this encounter Care Teams Reference Services Head Relationship Specialty Start Date End Date Delmis Rico MD PCP - General Internal Medicine 05/29/20 03/26/21 Karla, Pcp PCP - General Internal Medicine 03/27/21 documented as of this encounter
--- OUTSIDE RECORDS SUMMARY | 2024-07-01 10:00 | XMS_ITS | Encounter Summary ---
Author Organization [facility] Address [address] [place] [address] Care Team Providers Care Insulator Technician Name Role Phone Deedee Lopez MD Primary Care Provider Un available Jovanna Ross MD Primary Care Provider Deedee Hunter MD Primary Care Provider Un available Jovanna Ross MD Primary Care Provider UnavailDelmis Herrera MD Primary Care Provider [facility], Pcp Primary Care Provider Unavailabl e Reason for Visit * Reason Onset Date Comments injection 11/01/2011 Encounter Details Date Type Department Care Team Description 11/01/2011 Telephone Physiatry - [address] [address] Jett Juarez DO injection Social History Tobacco Use Types Packs/Day Years Used Date Smoking Tobacco: Former Cigarettes Q uit: 02/18/1996 Smokeless Tobacco: Never Alcohol Use Standard Drinks/Week Comments Yes 20 (1 standard drink = 0.6 oz pure alcohol) Up to 12 beers on his days off. Sex Assigned at Date Recorded Not on file documented as of this encounter Miscellaneous Notes * Telephone Encounter - Jett Juarez - 11/04/2011 12:39 PM EDT Procedure was ordered, please schedule. * Telephone Encounter - Irma Mcdonough L.P.N. - 11/04/2011 8:55 AM EDT Patient would like to be scheduled for repeat left SI joint injection [place] [facility] order THANKS. * Telephone Encounter - Sravani Hackett - 11/01/2011 1:39 PM EDT Patient would like to be scheduled for another injection--please order documented in this encounter Plan of Treatment Scheduled Orders Name Type Priority Associated Diagnoses Orde r Schedule PHYSIATRY PROCEDURE PHYSIATRY Routine Lumbago Disorders of sacrum Ordered: 11/04/2011 documented as of this encounter Visit Diagnoses Diagnosis Lumbago- Primary Disorders of sacrum documented in this encounter Care Teams Insulator Technician Relationship Specialty Start Date End Date Deedee Lopez MD PCP - General 08/17/06 08/08/16 Jovanna Ross MD PCP - General Internal Medicine 08/09/16 09/15/16 Deedee Lopez MD PCP - General Internal Medicine 09/16/16 Jovanna Ross MD PCP - General Internal Medicine 02/27/17 05/28/20 Delmis Rico MD PCP - General Internal Medicine 05/29/20 03/26/21 [facility], Pcp PCP - General Internal Medicine 03/27/21 documented as of this encounter
--- OUTSIDE RECORDS SUMMARY | 2024-07-01 10:00 | XMS_ITS | Encounter Summary ---
Author Organization [facility] Address [address] [place] [address] Care Team Providers Care Superintendent Ammunition Storage Name Role Phone Deedee Lopez MD Primary Care Provider Un available Jovanna Ross MD Primary Care Provider Deedee Hunter MD Primary Care Provider Un available Jovanna Ross MD Primary Care Provider UnavailDelmis Herrera MD Primary Care Provider [facility], Pcp Primary Care Provider Unavailabl e Reason for Visit * Reason Onset Date Comments Special Procedure 09/02/2011 Encounter Details Date Type Department Care Team Description 09/02/2011 Telephone Physiatry - [address] [address] Jett Juarez DO Special Procedure Social History Tobacco Use Types Packs/Day Years [...] * Telephone Encounter - Jett Juarez - 09/02/2011 3:02 PM EDT Procedure was ordered, please schedule. * Telephone Encounter - Becca Montano M.A. - 09/02/2011 1:41 PM EDT Spoke to Antony. He would like to repeat left L3 TFE on 06/07/11. I booked patient for 09/13/11 at .Please, review and place the order. Thank you. * Telephone Encounter - Siena Gillviry - 09/02/2011 1:12 PM EDT Patient had a series of two injections for his back pain and he said he was offered a third, he wants to know if this can just be set up. documented in this encounter Plan of Treatment Scheduled Orders Name Type Priority Associated Diagnoses Orde r Schedule PHYSIATRY PROCEDURE PHYSIATRY Routine L3-4 Disc bulge with left radiculopathy Ordered: 09/02/2011 documented as of this encounter Visit Diagnoses Diagnosis L3-4 Disc bulge with left radiculopathy- Primary Thoracic or lumbosacral neuritis or radiculitis, unspecified documented in this encounter Care Teams Superintendent Ammunition Storage Relationship Specialty Start Date End Date Deedee Lopez MD PCP - General 08/17/06 08/08/16 Jovanna Ross MD PCP - General Internal Medicine 08/09/16 09/15/16 Deedee Lopez MD PCP - General Internal Medicine 09/16/16 Jovanna Ross MD PCP - General Internal Medicine 02/27/17 05/28/20 Delmis Rico MD PCP - General Internal Medicine 05/29/20 03/26/21 [facility], Pcp PCP - General Internal Medicine 03/27/21 documented as of this encounter
--- OUTSIDE RECORDS SUMMARY | 2024-07-01 10:00 | XMS_ITS | Encounter Summary ---
Author Organization [facility] Address [address] [place] [address] Care Team Providers Care Catcher Plug Name Role Phone Deedee Lopez MD Primary Care Provider Un available Jovanna Ross MD Primary Care Provider Deedee Hunter MD Primary Care Provider Un available Jovanna Ross MD Primary Care Provider Delmis Rodriguez MD Primary [facility] Provider [facility], Pcp Primary Care Provider Unavailjong e Encounter Details Date Type Department Care Team Description 05/07/2011 Release of Information Medical Records [address] [place] [address] Abstract, Provider Social History Tobacco Use Types Packs/Day Years [...] on filedocumented in this encounter Care Teams Catcher Plug Relationship Specialty Start Date End Date Deedee Lopez MD PCP - General 08/17/06 08/08/16 Jovanna Ross MD PCP - General Internal Medicine 08/09/16 09/15/16 Deedee Lopez MD PCP - General Internal Medicine 09/16/16 Jovanna Ross MD PCP - General Internal Medicine 02/27/17 05/28/20 Delmis Rico MD PCP - General Internal Medicine 05/29/20 03/26/21 [facility], Pcp PCP - General Internal Medicine 03/27/21 documented as of this encounter
--- OUTSIDE RECORDS SUMMARY | 2024-07-01 10:00 | XMS_ITS | Encounter Summary ---
Author Organization [facility] Address [address] [place] [address] Care Team Providers Care Wire Coiler Machine Operator Name Role Phone Jovanna Ross MD Primary Care Provider Delmis Rodriguez MD Primary Care Provider Denisse Acosta, Pcp Primary Care Provider Skyla gong Encounter Details Date Type Department Care Team Description 05/29/2018 [facility] Medical Records [address] [place] [address] Social History Tobacco Use Types Packs/Day Years [...] on filedocumented in this encounter Care Teams Wire Coiler Machine Operator Relationship Specialty Start Date End Date Jovanna Ross MD PCP - General Internal Medicine 02/27/17 05/28/20 Delmis Rico MD PCP - General Internal Medicine 05/29/20 03/26/21 [facility], Pcp PCP - General Internal Medicine 03/27/21 documented as of this encounter
--- OUTSIDE RECORDS SUMMARY | 2024-07-01 10:00 | XMS_ITS | Encounter Summary ---
Author Organization [facility] Address [address] [place] [address] Care Team Providers Care Maintenance Aide Name Role Phone Deedee Lopez MD Primary Care Provider Un available Jovanna Ross MD Primary Care Provider Deedee Hunter MD Primary Care Provider Un available Jovanna Ross MD Primary Care Provider Delmis Rodriguez MD Primary Care Provider [facility], Pcp Primary Care Provider Unavailjong e Encounter Details Date Type Department Care Team Description 07/20/2014 Release of Information Medical Records [address] [place] [address] Abstract, Provider Social History Tobacco Use Types [...] on filedocumented in this encounter Care Teams Maintenance Aide Relationship Specialty Start Date End Date Deedee Lopez MD PCP - General 08/17/06 08/08/16 Jovanna Ross MD PCP - General Internal Medicine 08/09/16 09/15/16 Deedee Lopez MD PCP - General Internal Medicine 09/16/16 Jovanna Ross MD PCP - General Internal Medicine 02/27/17 05/28/20 Delmis Rico MD PCP - General Internal Medicine 05/29/20 03/26/21 [facility], Pcp PCP - General Internal Medicine 03/27/21 documented as of this encounter
--- OUTSIDE RECORDS SUMMARY | 2024-07-01 10:00 | XMS_ITS | Encounter Summary ---
Author Organization [facility] Address [address] [place] [address] Care Team Providers Care Balancing Machine Set Up Worker Name Role Phone Deedee Lopez MD Primary Care Provider Un available Jovanna Ross MD Primary Care Provider Deedee Hunter MD Primary Care Provider Un available Jovanna Ross MD Primary Care Provider UnavailDelmis Herrera MD Primary Care Provider [facility], Pcp Primary Care Provider Unavailjong gong Encounter Details Date Type Department Care Team Description 11/02/2010 Release of Information Orthopedic Surgery - [address] [place] [address] Abstract, Provider Social History Tobacco Use Types Packs/Day Years Used Date Smoking Tobacco: Former Cigarettes Q uit: 02/18/1996 Alcohol Use Standard Drinks/Week Comments Yes 20 (1 standard drink = 0.6 oz pure alcohol) Up to 12 beers on his days off. Sex Assigned at Date Recorded Not on file documented as of this encounter Plan of Treatment Not on file documented as of this encounter Visit Diagnoses Not on filedocumented in this encounter Care Teams Balancing Machine Set Up Worker Relationship Specialty Start Date End Date Deedee Lopez MD PCP - General 08/17/06 08/08/16 Jovanna Ross MD PCP - General Internal Medicine 08/09/16 09/15/16 Deedee Lopez MD PCP - General Internal Medicine 09/16/16 Jovanna Ross MD PCP - General Internal Medicine 02/27/17 05/28/20 Delmis Rico MD PCP - General Internal Medicine 05/29/20 03/26/21 [facility], Pcp PCP - General Internal Medicine 03/27/21 documented as of this encounter
--- OUTSIDE RECORDS SUMMARY | 2024-07-01 10:00 | XMS_ITS | Encounter Summary ---
Author Organization [facility] Address [address] [place] [address] Care Team Providers Care Improvement Coordinator Name Role Phone Jovanna Ross MD Primary Care Provider Delmis Rodriguez MD Primary Care Provider Denisse Acosta, Pcp Primary Care Provider Unavailjong gong Encounter Details Date Type Department Care Team Description 06/10/2018 [facility] Medical Records [address] [place] [id number] Baldo Wahl MD Social History Tobacco Use Types Packs/Day Years [...] on filedocumented in this encounter Care Teams Improvement Coordinator Relationship Specialty Start Date End Date Jovanna Ross MD PCP - General Internal Medicine 02/27/17 05/28/20 Delmis Rico MD PCP - General Internal Medicine 05/29/20 03/26/21 [facility], Pcp PCP - General Internal Medicine 03/27/21 documented as of this encounter
--- OUTSIDE RECORDS SUMMARY | 2024-07-01 10:00 | XMS_ITS | Encounter Summary ---
[facility] Address [address] [place] [address] Care Team Providers Care Orthopaedic Surgeon Name Role Phone Jovanna Ross MD Primary Care Provider Delmis Rodriguez MD Primary Care Provider Denisse Acosta, Pcp Primary Care Provider Skyla gong Encounter Details Date Type Department Care Team Description 03/02/2018 [facility] Medical Records [address] [place] [id number] Allie Huizar Social History Tobacco Use Types Packs/Day Years [...] on filedocumented in this encounter Care Teams Orthopaedic Surgeon Relationship Specialty Start Date End Date Jovanna Ross MD PCP - General Internal Medicine 02/27/17 05/28/20 Delmis Rico MD PCP - General Internal Medicine 05/29/20 03/26/21 [facility], Pcp PCP - General Internal Medicine 03/27/21 documented as of this encounter
--- OUTSIDE RECORDS SUMMARY | 2024-07-01 10:00 | XMS_ITS | Encounter Summary ---
Author Organization [facility] Address [address] [place] [address] Care Team Providers Care Supervisor Cold Rolling Name Role Phone Jovanna Ross MD Primary Care Provider Delmis Rodriguez MD Primary Care Provider [facility], Pcp Primary Care Provider Unavailabl e Reason for Visit * Reason Onset Date Comments Sanitary Engineer Feedback 02/19/2018 Margaret Sam Encounter Details Date Type Department Care Team Description 02/19/2018 Telephone Medicine/Pediatrics - [address] [id number] Jovanna Ross MD Sanitary Engineer Feedback (Margaret Sam) Social History Tobacco Use Types Packs/Day Years Used Date Smoking Tobacco: Former Cigarettes Q uit: 02/18/1996 Smokeless Tobacco: Never Alcohol Use Standard Drinks/Week Comments Yes 30 (1 standard drink = 0.6 oz pu re alcohol) Sex Assigned at Date Recorded Not on file documented as of this encounter Miscellaneous Notes * Telephone Encounter - Lizy Jeong - 02/19/2018 10:34 AM EST [facility] Trace #: [id number] Subscriber: DONELL PEREZ Submitter : JOVANNA ROSS Submitter Type: Provider : 1965 Referral (#[id number]) Specialty Care Review Type: Initial Certification Status : Certified in total Service Type : Medical Care Place Of Service : Office Visits : 12 Service Date : 02/19/2018-02/19/2019 Service Providers Provider Name ID Provider Type Specialty MD MARGARET SAM NPI : [id number] Performing Specialist Faxed approval. * Telephone Encounter - Tayla Osorio - 02/19/2018 9:56 AM EST What insurance does the patient have today? Payor: [place]FS / Plan: GARIMA ESTEVEZ [place] $20 / Product Type: HMO [id number] Effective 11/17/08: BC will not retro referral requests over 90 days. If request is for this please instruct patient to call the 800# on their insurance card to appeal. Do not submit a request. Referrals cannot be processed if the insurance is not accurate. If the insurance listed above in red is NO BILLING INFORMATION FOUND FOR THIS ENCOUTNER The patients correct insurance must be obtained and registered in [facility] or their referral can not be processed. Is this a retro request? NO. If yes for what date of service do you need the retro referral? N/A Who is calling to request this referral? office If the caller is not the patient, what is their name? aristeo Ask the patient WHO referred them to this specialty: Patient saw Dr. Ross at [facility] for the problem and was told if symptoms did not resolve or worsen they would refer them to this specialty FIRST and LAST NAME of SPECIALIST PATIENT is seeing: Margaret Sam- [phone] What specialty is this? ortho DIAGNOSIS Patient is being seen for (Not a body part or a procedure): joint replacement evaluation-- xrays May- Severe osteoarthritis bilateral knees Have you seen this SPECIALIST for this PROBLEM/DX before?YES If YES, when: Have you checked REVIEW or the APPT DESK to see if this referral has already been done or has visits left? YES Is this visit:Follow Up Address of Specialist: [address] Phone # of Specialist:[phone] Fax #: (if applicable):[phone] Does patient have an appointment scheduled?: YES Date of appointment- (including a retro-request): 02-19-18 requesting 12 visits Is this appointment related to: Not MVA, WC or Surgery related PLS call when approved due to surgery 02-27 documented in this encounter Plan of Treatment Not on file documented as of this encounter Visit Diagnoses Not on filedocumented in this encounter Care Teams Supervisor Cold Rolling Relationship Specialty Start Date End Date Jovanna Ross MD PCP - General Internal Medicine 02/27/17 05/28/20 Delmis Rico MD PCP - General Internal Medicine 05/29/20 03/26/21 [facility], Pcp PCP - General Internal Medicine 03/27/21 documented as of this encounter
--- OUTSIDE RECORDS SUMMARY | 2024-07-01 10:00 | XMS_ITS | Encounter Summary ---
Author Organization [facility] Address [address] [place] [address] Care Team Providers Care Microfilm Equipment Inspector Name Role Phone Jovanna Ross MD Primary Care Provider Delmis Rodriguez MD Primary Care Provider Denisse Acosta, Pcp Primary Care Provider Skyla gong Encounter Details Date Type Department Care Team Description 02/27/2018 [facility] Medical Records [address] [place] [id number] Gallo Belén Social History Tobacco Use Types Packs/Day Years [...] on filedocumented in this encounter Care Teams Microfilm Equipment Inspector Relationship Specialty Start Date End Date Jovanna Ross MD PCP - General Internal Medicine 02/27/17 05/28/20 Delmis Rico MD PCP - General Internal Medicine 05/29/20 03/26/21 [facility], Pcp PCP - General Internal Medicine 03/27/21 documented as of this encounter
--- OUTSIDE RECORDS SUMMARY | 2024-07-01 10:00 | XMS_ITS | Clinical Summary ---
Author Organization [facility] Address [address] [place] [address] Care Team Providers Care Warp Scouring Vat Tender Name Role Phone [facility], Pcp Primary Care Provider Unavailabl e Allergies Active Allergy Reactions Severity Noted Date Comments Aspirin Nausea and Vomiting 03/05/2007 Hx of bleeding ulcer Medications Medication Sig Dispensed Refills Start Date End Date Status Multiple Vitamins-Minerals (MENS MULTIVITAMIN PLUS OR) Take by mouth. 0 Active ondansetron (ZOFRAN) 4 MG tabletIndications:C ellulitis and abscess of oral soft tissues Take 1 Tab by mouth every 8 hours as needed for Nausea for up to 7 days. 60 Tab 0 05/09/2017 Active ALBUTEROL SULFATE (PROAIR HFA) 108 (90 BASE) MCG/ACT Aero Soln Inhale 2 Puffs into the lungs every 4 hours as needed for Cough or Wheezing. 2 Inhaler 5 05/26/2017 Active albuterol (PROVENTIL) (2.5 MG/3ML) 0.083% nebulizer solution Take 1 Vial by nebulization every 4 hours as needed for Shortness of Breath for up to 180 days. 50 Vial 0 01/26/2019 Active hydrOXYzine (ATARAX) 25 MG tablet Take 1-2 Tabs by mouth every 8 hours as needed for Anxiety. 90 Tab 3 01/24/2020 Active duloxetine (CYMBALTA) 30 MG capsule Take 1 Cap by mouth daily. 90 Cap 1 05/11/2020 Active celecoxib (CELEBREX) 200 MG capsule Take 1 Cap by mouth daily. 90 Cap 1 05/11/2020 Active cyclobenzaprine (FLEXERIL) 5 MG tablet Take 1-2 Tabs by mouth 3 times daily as needed for Muscle spasms. 60 Tab 3 05/11/2020 Active montelukast (SINGULAIR) 10 MG tablet Take 1 Tab by mouth at bedtime. 90 Tab 1 05/11/2020 Active hydrochlorothiazide (HYDRODIURIL) 50 MG tablet Take 1 Tab by mouth daily. 90 Tab 1 05/11/2020 Active lisinopril (PRINIVIL,ZESTRIL) 20 MG tablet Take 1 Tab by mouth daily. 90 Tab 3 05/11/2020 Active omeprazole (PRILOSEC) 20 MG capsule Take 1 Cap by mouth daily. 90 Cap 1 05/11/2020 Active Symbicort 160-4.5 MCG/ACT inhaler Inhale 2 Puffs into the lungs 2 times daily. 1 Inhaler 3 05/29/2020 Active fluticasone 50 MCG/ACT nasal spray instill 2 SPRAYS IN EACH nostril DAILY 3 Bottle 1 06/06/2020 Active Active Problems Problem Noted Date Prediabetes 09/08/2018 Obesity (BMI 30-39.9) 09/08/2018 Abnormal ultrasound 09/08/2018 Alcohol use 03/19/2017 Meralgia paresthetica 10/01/2016 Fatty liver 05/04/2014 Overview: On CT 05/01 L3-4 Disc bulge with left radiculopathy 04/10/2011 Reactive airway disease 01/31/2011 DJD (degenerative joint disease) of knee 10/11/2009 Obstructive sleep apnea 09/21/2009 Hyperlipidemia 02/02/2007 Essential hypertension, benign 7 Esophageal reflux 02/02/2007 IBS (irritable bowel syndrome) History of peptic ulcer Overview: DUE TO ASA/ETOH History of diverticulitis Overview: POSSIBLE DX 03/22 Resolved Problems Problem Noted Date Resolved Date Osteoarthritis of both knees 10/13/2015 Other tear of cartilage or meniscus of knee, cur rent 10/11/2009 02/22/2013 Obesity, unspecified 02/02/2007 07/06/2012 Sleep disturbance, unspecified 02/02/2007 0 02/22/2013 Overview: Has had sleep study but never followed up with Dr Sachi PERSAUD update Immunizations Name Administration Dates Next Due Influenza (> 6 Months) 11/20/2019,2018,11/24/2017,11/21,11/10/2015,11/26/2014,11/26/2013 ,12/29/2012,02/28/2012,12/19/2007 Pneumoccoccal(Adult) Polysac charide PPSV23 03/19/2017 Tdap 07/21/2008 Tdap (Adacel) 07/18/2016 Family History Relation Name Status Comments Brother Alive unknown- HEMOCH ROMATOSIS Daughter 1 Alive healthy Daughter 2 Alive healthy Father (Age 77) htn, CHOL, aspiration pneumonia Maternal Grandfather unknown Maternal Grandmother unknown Mother Alive htn, type 2 lula betes, CAD Paternal Grandfather unknown Paternal Grandmother unknown Son Alive Crohns Social History Tobacco Use Types Packs/Day Years Used Date Smoking Tobacco: Former Cigarettes Q uit: 02/18/1996 Smokeless Tobacco: Never Alcohol Use Standard Drinks/Week Comments Yes 30 (1 standard drink = 0.6 oz pu re alcohol) Sex Assigned at Date Recorded Not on file Last Filed Vital Signs Vital Sign Reading Time Taken Comments Blood Pressure 136/90 09/21/2019 3:48 PM EDT Pulse 84 09/21/2019 3:48 PM EDT Temperature 37.1 ??C (98.7 ??F) 08/24/2019 4:15 PM ED T Respiratory Rate 16 09/21/2019 3:48 PM EDT Oxygen Saturation 96% 01/26/2019 9:15 AM EST Inhaled Oxygen Concentration - - Weight 121.6 kg (268 lb) 09/21/2019 3:48 PM EDT Height 177.8 cm (5' 10 ) 09/21/2019 3:48 PM EDT Body Mass Index 38.45 09/21/2019 3:48 PM EDT Plan of Treatment Health Maintenance Due Date Last Done Comments Covid-19 Vaccine (#1) 02/07/1966 SHINGLES VACCINE (1 of 2) 08/07/2013 BASELINE HEALTH EXAM 40-64 08/23/202108/23 (Completed), 08/24/2019, 08/24/2019, Additional history exists BMI CHECK/ADVISE 02/18/2024 09/21/2019, 05/2019, 08/24/2019, Additional history exists CHOLESTEROL SCREENING 08/23/2024 08/24/2019 , 03/19/2017, 05/09/2016, Additional history exists INFLUENZA (Season Ended) 2024 020, 12/04/2018, 11/24/2017, Additional history exists DTAP/TDAP/TD (3 - Td or Tdap) 07/18/2026 07/18/2016, 07/21/2008 COLON CANCER SCREENING 09/09/2026 09/09/2016 PNEUMOCOCCAL VACCINE FOR HIG H RISK PATIENTS (#2) 08/07/2028 03/19/2017, 04/05/2014 HEPATITIS C SCREENING Completed 02/02/2018 , 03/19/2017, 03/19/2000 Care Teams Warp Scouring Vat Tender Relationship Specialty Start Date End Date Community, Pcp PCP - General Internal Medicine 03/27/21
--- OUTSIDE RECORDS SUMMARY | 2024-07-01 10:00 | XMS_ITS | Encounter Summary ---
Author Organization [facility] Address [address] [place] [address] Care Team Providers Care Co Founder & Ceo Name Role Phone Delmis Rico MD Primary Care Provider [facility], Pcp Primary Care Provider Unavailabl e Reason for Visit * Reason Onset Date Comments medication problems 05/29/2020 Encounter Details Date Type Department Care Team Description 05/29/2020 Telephone Medicine/Pediatrics - [address] [phone] Delmis Rico MD medication problems Social History Tobacco Use Types Packs/Day Years Used Date Smoking Tobacco: Former Cigarettes Q uit: 02/18/1996 Smokeless Tobacco: Never Alcohol Use Standard Drinks/Week Comments Yes 30 (1 standard drink = 0.6 oz pu re alcohol) Sex Assigned at Date Recorded Not on file documented as of this encounter Miscellaneous Notes * Telephone Encounter - Delmis Rico MD - 05/29/2020 1:57 PM EDT Rx re-sent. * Telephone Encounter - Tayla Osorio - 05/29/2020 1:28 PM EDT Who is calling? The patient Name of the medication budesonide-formoterol (Symbicort) 160-4.5 MCG/ACT inhaler What is the specific problem or interaction? Needs to be brand name no subs If the patient is having a problem with taking the med - how long has the problem been going on? N/A documented in this encounter Plan of Treatment Not on file documented as of this encounter Visit Diagnoses Not on filedocumented in this encounter Care Teams Co Founder & Ceo Relationship Specialty Start Date End Date Delmis Rico MD PCP - General Internal Medicine 05/29/20 03/26/21 [facility], Pcp PCP - General Internal Medicine 03/27/21 documented as of this encounter
--- OUTSIDE RECORDS SUMMARY | 2024-07-01 10:01 | XMS_ITS | Encounter Summary ---
Author Organization [facility] Address [address] [place] [address] Care Team Providers Care Electric Meter Tester Helper Name Role Phone Deedee Lopez MD Primary Care Provider Un available Jovanna Ross MD Primary Care Provider Deedee Hunter MD Primary Care Provider Un available Jovanna Ross MD Primary Care Provider UnavailDelmis Herrera MD Primary Care Provider [facility], Pcp Primary Care Provider Unavailjong e Encounter Details Date Type Department Care Team Description 10/13/2009 [facility] Medical Records [address] [place] [address] Bairon Mullins MD Social History Tobacco Use Types Packs/Day [...] on filedocumented in this encounter Care Teams Electric Meter Tester Helper Relationship Specialty Start Date End Date Deedee Lopez MD PCP - General 08/17/06 08/08/16 Jovanna Ross MD PCP - General Internal Medicine 08/09/16 09/15/16 Deedee Lopez MD PCP - General Internal Medicine 09/16/16 Jovanna Ross MD PCP - General Internal Medicine 02/27/17 05/28/20 Delmis Rico MD PCP - General Internal Medicine 05/29/20 03/26/21 [facility], Pcp PCP - General Internal Medicine 03/27/21 documented as of this encounter
--- OUTSIDE RECORDS SUMMARY | 2024-07-01 10:01 | XMS_ITS | Encounter Summary ---
Author Organization [facility] Address [address] [place] [address] Care Team Providers Care Water Fabricator Operator Name Role Phone Deedee Lopez MD Primary Care Provider Un available Jovanna Ross MD Primary Care Provider Deedee Hunter MD Primary Care Provider Un available Jovanna Ross MD Primary Care Provider UnavailDelmis Herrera MD Primary Care Provider [facility], Pcp Primary Care Provider Unavailjong e Encounter Details Date Type Department Care Team Description 05/24/2014 Wholesale Parts Salesperson Report Medical Records [address] [place] [id number] Antony Caballero MD Social History Tobacco Use Types Packs/Day [...] on filedocumented in this encounter Care Teams Water Fabricator Operator Relationship Specialty Start Date End Date Deedee Lopez MD PCP - General 08/17/06 08/08/16 Jovanna Ross MD PCP - General Internal Medicine 08/09/16 09/15/16 Deedee Lopez MD PCP - General Internal Medicine 09/16/16 Jovanna Ross MD PCP - General Internal Medicine 02/27/17 05/28/20 Delmis Rico MD PCP - General Internal Medicine 05/29/20 03/26/21 [facility], Pcp PCP - General Internal Medicine 03/27/21 documented as of this encounter
--- OUTSIDE RECORDS SUMMARY | 2024-07-01 10:01 | XMS_ITS | Encounter Summary ---
Author Organization [facility] Address [address] [place] [address] Care Team Providers Care Discharge Planner Name Role Phone Jovanna Ross MD Primary Care Provider Delmis Rodriguez MD Primary Care Provider Denisse Acosta, Pcp Primary Care Provider Skyla gong Encounter Details Date Type Department Care Team Description 05/10/2017 [facility] Medical Records [address] [place] [phone] Alexys Fortune Social History Tobacco Use Types Packs/Day Years [...] on filedocumented in this encounter Care Teams Discharge Planner Relationship Specialty Start Date End Date Jovanna Ross MD PCP - General Internal Medicine 02/27/17 05/28/20 Delmis Rico MD PCP - General Internal Medicine 05/29/20 03/26/21 [facility], Pcp PCP - General Internal Medicine 03/27/21 documented as of this encounter
--- OUTSIDE RECORDS SUMMARY | 2024-07-01 10:01 | XMS_ITS | Encounter Summary ---
[facility] Organization [facility] Address [address] [place] [address] Care Team Providers Care Database Marketing Manager Name Role Phone Jovanna Ross MD Primary Care Provider Delmis Rodriguez MD Primary Care Provider Denisse Acosta, Pcp Primary Care Provider Unavailjong gong Encounter Details Date Type Department Care Team Description 01/01/[address] Judge Report Medical Records [address] [place] [phone] Edinson Sam MD Social History Tobacco Use Types Packs/Day [...] on filedocumented in this encounter Care Teams Database Marketing Manager Relationship Specialty Start Date End Date Jovanna Ross MD PCP - General Internal Medicine 02/27/17 05/28/20 Delmis Rico MD PCP - General Internal Medicine 05/29/20 03/26/21 [facility], Pcp PCP - General Internal Medicine 03/27/21 documented as of this encounter
--- OUTSIDE RECORDS SUMMARY | 2024-07-01 10:01 | XMS_ITS | Encounter Summary ---
Author Organization [facility] Address [address] [place] [address] Care Team Providers Care Onion Farmer Name Role Phone Deedee Lopez MD Primary Care Provider Un available Jovanna Ross MD Primary Care Provider Deedee Hunter MD Primary Care Provider Un available Jovanna Ross MD Primary Care Provider UnavailDelmis Herrera MD Primary Care Provider [facility], Pcp Primary Care Provider Unavailjong e Encounter Details Date Type Department Care Team Description 10/13/2009 [facility] Orthopedic Surgery - [address] [place] [address] Bairon Mullins MD Social History Tobacco Use [...] on filedocumented in this encounter Care Teams Onion Farmer Relationship Specialty Start Date End Date Deedee Lopez MD PCP - General 08/17/06 08/08/16 Jovanna Ross MD PCP - General Internal Medicine 08/09/16 09/15/16 Deedee Lopez MD PCP - General Internal Medicine 09/16/16 Jovanna Ross MD PCP - General Internal Medicine 02/27/17 05/28/20 Delmis Rico MD PCP - General Internal Medicine 05/29/20 03/26/21 [facility], 1928–1983, Pcp PCP - General Internal Medicine 03/27/21 documented as of this encounter
--- OUTSIDE RECORDS SUMMARY | 2024-07-01 10:01 | XMS_ITS | Encounter Summary ---
Author Organization [facility] Address [address] [place] [address] Care Team Providers Care Microsoft Crm Developer Name Role Phone Jovanna Ross MD Primary Care Provider Delmis Rodriguez MD Primary Care Provider Denisse [facility], Pcp Primary Care Provider Unavailjong gong Encounter Details Date Type Department Care Team Description 08/26/2017 Orders Only Medicine/Pediatrics - [address] [phone] Pooja Hinojosa PA-C Elevated LFTs (Primary Dx) Social History Tobacco Use Types Packs/Day Years Used Date Smoking Tobacco: Former Cigarettes Q uit: 02/18/1996 Smokeless Tobacco: Never Alcohol Use Standard Drinks/Week Comments Yes 30 (1 standard drink = 0.6 oz pu re alcohol) Sex Assigned at Date Recorded Not on file documented as of this encounter Plan of Treatment Not on file documented as of this encounter Results * HEPATITIS PANEL (02/02/2018 4:00 PM EST) Hepatitis B surface antibody NEGATIVE NEGATIVE 02/02/2018 7:39 PM EST [facility] Hepatitis B surface antigen NEGATIVE NEGATIVE 02/02/2018 7:49 PM EST [facility] Comment: Over the counter supplements containing high doses of biotin may interfere with this assay. ??If interference is suspected, patients shoud be retested after refraining from biotin supplements for 72 hours. Hepatitis C Virus Diagnostic NEGATIVE NEGATIVE 02/02/2018 8:18 PM EST [facility] HEPATITIS A ANTIBODY TOTAL NEGATIVE NEGATIVE 02/02/2018 8:30 PM EST [facility] Comment: Over the counter supplements containing high doses of biotin may interfere with this assay. ??If interference is suspected, patients shoud be retested after refraining from biotin supplements for 72 hours. HEPATITIS B CORE ANTIBODY NEGATIVE NEGATIVE 02/02/2018 8:31 PM EST [facility] 02/02/2018 4:00 PM EST 02/02/2018 4:01 PM EST Pooja Hinjoosa PA-C LAB [facility] * (ABNORMAL) HEPATIC FUNCTION (LIVER) PANEL (02/02/2018 4:00 PM EST) Albumin 3.7 3.2 - 5.0 G/dL 02/02/2018 7:31 PM EST [facility] BILIRUBIN TOTAL 0.4 0.0 - 1.4 mg/dL 02/02/2018 7:31 PM EST [facility] BILIRUBIN DIRECT 0.1 0.0 - 0.3 mg/dL 02/02/2018 7:31 PM EST [facility] BILIRUBIN INDIRECT 0.3 0.0 - 1.1 mg/dL 02/02/2018 7:31 PM EST [facility] SGOT 42 10 - 42 U/L 02/02/2018 7:31 PM EST [facility] SGPT 100(H) 10 - 60 U/L 02/02/2018 7:31 PM EST [facility] ALK PHOS 70 42 - 121 U/L 02/02/2018 7:31 PM EST [facility] TOTAL PROTEIN (TP) 6.7 6.0 - 8.0 G/dL 02/02/2018 7:32 PM EST [facility] 02/02/2018 4:00 PM EST 02/02/2018 4:01 PM EST Pooja Hinojosa PA-C LAB [facility] documented in this encounter Visit Diagnoses Diagnosis Elevated LFTs- Primary Other abnormal blood chemistry documented in this encounter Care Teams Microsoft Crm Developer Relationship Specialty Start Date End Date Jovanna Ross MD PCP - General Internal Medicine 02/27/17 05/28/20 Delmis Rico MD PCP - General Internal Medicine 05/29/20 03/26/21 [facility], Pcp PCP - General Internal Medicine 03/27/21 documented as of this encounter
--- OUTSIDE RECORDS SUMMARY | 2024-07-01 10:01 | XMS_ITS | Encounter Summary ---
Author Organization [facility] Address [address] [place] [address] Care Team Providers Care Ell Tutor Name Role Phone Jovanna Ross MD Primary Care Provider Delmis Rodriguez MD Primary Care Provider [facility], Pcp Primary Care Provider Unavailabl e Reason for Referral * Radiology Services (Routine) - Closed Specialty Diagnoses / Procedures Referred By Jasmin arroyo Referred To Contact Radiology Diagnoses Elevated LFTs Fatty liver Renal cyst Procedures CAT SCANS OF ABDOMEN W/WO CONTRAST Jovanna Ross MD [address] [place] [id number] [address] Referral ID Status Reason Start Date Expiration Date Visits Re quested Visits Authorized [id number] Closed 08/25/2019 02/20/2020 1 1 Encounter Details Date Type Department Care Team Description 08/25/2019 Orders Only Medicine/Pediatrics - [address] [phone] Jovanna Ross MD Elevated LFTs (Primary Dx); Fatty liver; Renal cyst Social History Tobacco Use Types Packs/Day Years Used Date Smoking Tobacco: Former Cigarettes Q uit: 02/18/1996 Smokeless Tobacco: Never Alcohol Use Standard Drinks/Week Comments Yes 30 (1 standard drink = 0.6 oz pu re alcohol) Sex Assigned at Date Recorded Not on file documented as of this encounter Plan of Treatment Scheduled Orders Name Type Priority Associated Diagnoses Orde r Schedule HEPATIC FUNCTION (LIVER) PANEL Lab Routine Elevated LFTs Fatty liver Renal cyst Expected: 08/25/2019, Expires: 08/24/2020 HEPATITIS PANEL Lab Routine Elevated LFTs Fatty liver Renal cyst Expected: 08/25/2019, Expires: 08/24/2020 SARS-COV-2 IGG AB PROFILE Lab Routine Elevated LFTs Fatty liver Renal cyst Expected: 08/25/2019, Expires: 08/24/2020 documented as of this encounter Results * CAT SCANS OF ABDOMEN W/WO CONTRAST (09/21/2019 3:26 PM EDT) 09/21/2019 3:58 PM EDT Narrative [facility] OTHER EXTERNAL - 09/21/2019 4:[address] OF THE ABDOMEN without and with intravenous contrast. HISTORY: ??Abnormal LFTs. ??Renal lesion. TECHNIQUE: ??Examination was performed on multidetector scanner without administration of intravenous contrast followed by postcontrast study after administration of 100 mL of OPTIRAY 300, with 100 seconds and thumb 3 minutes delay. ??Compared with ultrasound from 02/05/2018. FINDINGS: ??Liver revealed diffusely decreased attenuation consistent with some hepatic steatosis. ??Gallbladder is some contracted without evidence of calcified stones. ??There is no pericholecystic fluid collections. ??Adrenal glands, pancreas and spleen are unremarkable. ?? There is no evidence of ??nephrolithiasis. ??On the right side there is a 1.5 cm fluid attenuation cyst in the lower pole. ??On the left side there is 5.5 cm fluid attenuation cyst in the lower pole without evidence of septations or solid projections. ??There is no evidence of perinephric fluid collections. ??There is no evidence of ascites abscesses or focal fluid collections in the abdomen. ??There is no evidence of bowel obstruction. Lung bases are clear. ??There is no suspicious bone abnormalities. ??Degenerative changes are identified in the lower thoracic spine and the visualized portion of the lumbosacral spine. CONCLUSIONS: Hepatic steatosis. ??Bilateral renal cysts. RADIATION DOSE: ??? Radiation Dose ??ctdi c- 23.24 mGY 100cc 23.24 mGy 3 min 23.24 ??mGy CONTRAST: Procedure Note Kirstie Santos MD - 09/21/2019 CT OF THE ABDOMEN without and with intravenous contrast. HISTORY: Abnormal LFTs. Renal lesion. TECHNIQUE: Examination was performed on multidetector scanner withoutadministration of intravenous contrast followed by postcontrast study after administrationof 100 mL of OPTIRAY 300, with 100 seconds and thumb 3 minutes delay. Compared with ultrasoundfrom 02/05/2018. FINDINGS: Liver revealed diffusely decreased attenuation consistent withsome hepatic steatosis. Gallbladder is some contracted without evidence of calcifiedstones. There is no pericholecystic fluid collections. Adrenal glands, pancreas and spleenare unremarkable. There is no evidence of nephrolithiasis. On the right side there is a1.5 cm fluid attenuation cyst in the lower pole. On the left side there is 5.5 cmfluid attenuation cyst in the lower pole without evidence of septations or solid projections.There is no evidence of perinephric fluid collections. There is no evidence of ascites abscessesor focal fluid collections in the abdomen. There is no evidence of bowel obstruction. Lung bases are clear. There is no suspicious bone abnormalities.Degenerative changes are identified in the lower thoracic spine and the visualized portion of thelumbosacral spine. CONCLUSIONS: Hepatic steatosis. Bilateral renal cysts. RADIATION DOSE: ? Radiation Dose ctdi c- 23.24 mGY 100cc 23.24 mGy 3 min 23.24 mGy CONTRAST: Jovanna Ross MD CT SCANS [facility] OTHER EXTERNAL documented in this encounter Visit Diagnoses Diagnosis Elevated LFTs- Primary Other abnormal blood chemistry Fatty liver Other chronic nonalcoholic liver disease Renal cyst Unspecified congenital cystic kidney disease Elevated LFTs Other abnormal blood chemistry Fatty liver Other chronic nonalcoholic liver disease Renal cyst Unspecified congenital cystic kidney disease documented in this encounter Care Teams Ell Tutor Relationship Specialty Start Date End Date Jovanna Ross MD PCP - General Internal Medicine 02/27/17 05/28/20 Delmis Rico MD PCP - General Internal Medicine 05/29/20 03/26/21 [facility] PCP - General Internal Medicine 03/27/21 documented as of this encounter
--- OUTSIDE RECORDS SUMMARY | 2024-07-01 10:01 | XMS_ITS | Encounter Summary ---
Author Organization [facility] Address [address] [place] [address] Care Team Providers Care Sports Coordinator Name Role Phone Jovanna Ross MD Primary Care Provider Delmis Rodriguez MD Primary Care Provider Denisse Acosta, Pcp Primary Care Provider Skyla gong Encounter Details Date Type Department Care Team Description 11/25/2017 Proof Passer Report Medical Records [address] [place] [id number] Kody Resendiz PA-C Social History Tobacco Use Types Packs/Day Years [...] on filedocumented in this encounter Care Teams Sports Coordinator Relationship Specialty Start Date End Date Jovanna Ross MD PCP - General Internal Medicine 02/27/17 05/28/20 Delmis Rico MD PCP - General Internal Medicine 05/29/20 03/26/21 Karla, Remington PCP - General Internal Medicine 03/27/21 documented as of this encounter
== END 2024-06-30 09:25 | disposition home or self-care (01) ==
LOC: HO.HOSX 09:24
PROVIDERS: Visit Provider Orthopaedic Surgery
DX: Z13.89 Encounter for screening for other disorder (principal)

== ENCOUNTER 2024-07-01 09:05 | Outpatient (REF) | payer BC, SELFPAY ==
--- NOTE | ~2024-07-01 | XR_ITS ---
EXAMINATION: XR SHOULDER 2 OR MORE VIEWS BILATERAL HISTORY: M25.511 - Pain in right shoulder COMPARISON: There are no prior studies available for comparison. FINDINGS: Four views of the bilateral shoulders are submitted. Osseous mineralization is normal. There is no fracture or dislocation. The glenohumeral joints are maintained. There is moderate osteoarthritis of the bilateral AC joints, with joint space narrowing and osteophyte formation. The soft tissues are unremarkable. XR/XR Shoulder Ramiro min 2V IMPRESSION: 1 osteoarthritis of the bilateral AC joints. Electronically signed by: Jay Javier MD 07/01/2024 11:01 AM EDT
--- OUTSIDE RECORDS SUMMARY | 2024-07-05 09:17 | XMS_ITS | Encounter Summary ---
Author Organization [facility] Address [address] [place] [address] Care Team Providers Care Cylindrical Mixer Name Role Phone Jovanna Ross MD Primary Care Provider Delmis Rodriguez MD Primary Care Provider Denisse Acosta, Pcp Primary Care Provider Unavailjong gong Encounter Details Date Type Department Care Team Description 06/10/2018 [facility] Medical Records [address] [place] [phone] Baldo Wahl MD Social History Tobacco Use [...] on filedocumented in this encounter Care Teams Cylindrical Mixer Relationship Specialty Start Date End Date Jovanna Ross MD PCP - General Internal Medicine 02/27/17 05/28/20 Delmis Rico MD PCP - General Internal Medicine 05/29/20 03/26/21 Karla, Pcp PCP - General Internal Medicine 03/27/21 documented as of this encounter
--- OUTSIDE RECORDS SUMMARY | 2024-07-05 09:17 | XMS_ITS | Encounter Summary ---
Author Organization [facility] Address [address] [place] [address] Care Team Providers Care Pharmacovigilance Scientist Name Role Phone Deedee Lopez MD Primary Care Provider Un available Jovanna Ross MD Primary Care Provider Deedee Hunetr MD Primary Care Provider Un available Jovanna Ross MD Primary Care Provider UnavailDelmis Herrera MD Primary Care Provider [facility], Pcp Primary Care Provider Unavailabl e Reason for Visit * Reason Onset Date Comments Special Procedure 09/02/2011 Encounter Details Date Type Department Care Team Description 09/02/2011 Telephone Physiatry - [address] [address] Jett Juarez DO Special Procedure Social History [...] unspecified documented in this encounter Care Teams Pharmacovigilance Scientist Relationship Specialty Start Date End Date Deedee Lopez MD PCP - General 08/17/06 08/08/16 Jovanna Ross MD PCP - General Internal Medicine 08/09/16 09/15/16 Deedee Lopez MD PCP - General Internal Medicine 09/16/16 Jovanna Ross MD PCP - General Internal Medicine 02/27/17 05/28/20 Delmis Rico MD PCP - General Internal Medicine 05/29/20 03/26/21 [facility], Pcp PCP - General Internal Medicine 03/27/21 documented as of this encounter
--- OUTSIDE RECORDS SUMMARY | 2024-07-05 09:17 | XMS_ITS | Encounter Summary ---
Author Organization [facility] Address [address] [place] [address] Care Team Providers Care Weapons Officer Name Role Phone Jovanna Ross MD Primary Care Provider Delmis Rodriguez MD Primary Care Provider Denisse Acosta, Pcp Primary Care Provider Unavailjong gong Encounter Details Date Type Department Care Team Description 05/21/2018 Green Marketing Specialist Report Medical Records [address] [place] [phone] Baldo Wahl MD Social History Tobacco Use [...] on filedocumented in this encounter Care Teams Weapons Officer Relationship Specialty Start Date End Date Jovanna Ross MD PCP - General Internal Medicine 02/27/17 05/28/20 Delmis Rico MD PCP - General Internal Medicine 05/29/20 03/26/21 Karla, Pcp PCP - General Internal Medicine 03/27/21 documented as of this encounter
--- OUTSIDE RECORDS SUMMARY | 2024-07-05 09:17 | XMS_ITS | Encounter Summary ---
Author Organization [facility] Address [address] [place] [address] Care Team Providers Care Fusion Operator Name Role Phone Jovanna Ross MD Primary Care Provider Delmis Rodriguez MD Primary Care Provider Denisse Acosta, Pcp Primary Care Provider Skyla gong Encounter Details Date Type Department Care Team Description 02/27/2018 [facility] Medical Records [address] [place] [id number] Cuauhtemoc Tyler MD Social History Tobacco Use Types Packs/Day [...] on filedocumented in this encounter Care Teams Fusion Operator Relationship Specialty Start Date End Date Jovanna Ross MD PCP - General Internal Medicine 02/27/17 05/28/20 Delmis Rico MD PCP - General Internal Medicine 05/29/20 03/26/21 Karla, Pcp PCP - General Internal Medicine 03/27/21 documented as of this encounter
--- OUTSIDE RECORDS SUMMARY | 2024-07-05 09:17 | XMS_ITS | Encounter Summary ---
Author Organization [facility] Address [address] [place] [address] Care Team Providers Care Engineering Group Leader Name Role Phone Deedee Lopez MD Primary Care Provider Un available Jovanna Ross MD Primary Care Provider Deedee Hunter MD Primary Care Provider Un available Jovanna Ross MD Primary Care Provider UnavailDelmis Herrera MD Primary Care Provider [facility], Pcp Primary Care Provider Unavailabl e Reason for Visit * Reason Onset Date Comments lab test 06/25/2011 Encounter Details Date Type Department Care Team Description 06/25/2011 Telephone Medicine/Pediatrics - [address] [phone] Melissa Salgado PA-C lab test Social History Tobacco Use Types Packs/Day Years Used Date Smoking Tobacco: Former Cigarettes Q uit: 02/18/1996 Smokeless Tobacco: Never Alcohol Use Standard Drinks/Week Comments Yes 20 (1 standard drink = 0.6 oz pure alcohol) Up to 12 beers on his days off. Sex Assigned at Date Recorded Not on file documented as of this encounter Miscellaneous Notes * Telephone Encounter - Mj Krishna M.A. - 06/25/2011 8:58 AM EDT Per Melissa Plasencia, Called pt to notify that labs came back normal, however suggests mild dehydration, and would like him to drink more fluids. She put in a referral to Rheumatology, he may continue the flexeril at night if it helps. Pt agreed documented in this encounter Plan of Treatment Not on file documented as of this encounter Visit Diagnoses Not on filedocumented in this encounter Care Teams Engineering Group Leader Relationship Specialty Start Date End Date Deedee Lopez MD PCP - General 08/17/06 08/08/16 Jovanna Ross MD PCP - General Internal Medicine 08/09/16 09/15/16 Deedee Lopez MD PCP - General Internal Medicine 09/16/16 Jovanna Ross MD PCP - General Internal Medicine 02/27/17 05/28/20 Delmis Rico MD PCP - General Internal Medicine 05/29/20 03/26/21 [facility], Pcp PCP - General Internal Medicine 03/27/21 documented as of this encounter
--- OUTSIDE RECORDS SUMMARY | 2024-07-05 09:17 | XMS_ITS | Encounter Summary ---
Author Organization [facility] Address [address] [place] [address] Care Team Providers Care Toy Designer Name Role Phone Jovanna Ross MD Primary Care Provider Delmis Rodriguez MD Primary Care Provider [facility], Pcp Primary Care Provider Unavailjong gong Encounter Details Date Type Department Care Team Description 02/18/2018 Orders Only Adult Medicine [address] [address] Jovanna Ross MD Preoperative examination; Screening for deficiency anemia; shelter current use of anticoagulant therapy Social History Tobacco Use Types Packs/Day Years Used Date Smoking Tobacco: Former Cigarettes Q uit: 02/18/1996 Smokeless Tobacco: Never Alcohol Use Standard Drinks/Week Comments Yes 30 (1 standard drink = 0.6 oz pu re alcohol) Sex Assigned at Date Recorded Not on file documented as of this encounter Plan of Treatment Not on file documented as of this encounter Results * (ABNORMAL) URINALYSIS, ROUTINE (06/01/2018 9:46 AM EDT) GLUCOSE, URINE (UA) NEGATIVE NEGATIVE mg/dL 06/01/2018 1:11 PM EDT [facility] BILIRUBIN URINE NEGATIVE NEGATIVE 06/01/2018 1:11 PM EDT [facility] KETONE, URINE NEGATIVE NEGATIVE mg/dL 06/01/2018 1:11 PM EDT [facility] SPECIFIC GRAVITY, URINE 1.032(H) 1.003 - 1.030 06/01/2018 1:11 PM EDT [facility] BLOOD, URINE NEGATIVE NEGATIVE 06/01/2018 1:11 PM EDT [facility] PH, URINE 5.5 5.0 - 8.0 06/01/2018 1:11 PM EDT [facility] PROTEIN, URINE NEGATIVE <= TRACE mg/dl 06/01/2018 1:11 PM EDT [facility] UROBILINOGEN, URINE 0.2 0.2 - 1.0 E.U./dL 06/01/2018 1:11 PM EDT [facility] NITRITE,URINE NEGATIVE NEGATIVE 06/01/2018 1:11 PM EDT [facility] LEUKOCYTE ESTERASE, URINE NEGATIVE NEGATIVE 06/01/2018 1:11 PM EDT [facility] 06/01/2018 9:46 AM EDT 06/01/2018 9:53 AM EDT Jvoanna Ross MD LAB Performing Organization Address [facility]/ZIP Co de Phone Number [facility] * URINE, CULTURE (06/01/2018 9:46 AM EDT) Urine (Urine) 06/01/2018 9:4 6 AM EDT 06/01/2018 9:46 AM EDT Narrative [facility] - 06/02/2018 9:43 AM EDT No growth Jovanna Ross MD LAB Performing Organization Address [facility]/ZIP Co de Phone Number [facility] * HEMOGLOBIN A1C (06/01/2018 9:34 AM EDT) GLYCATED HEMOGLOBIN A1C 6.0 <6.5 % 06/01/2018 1:44 PM EDT [facility] ESTIMATED AVERAGE GLUCOSE 126 mg/dL 06/01/2018 1:44 PM EDT [facility] 06/01/2018 9:34 AM EDT 06/01/2018 9:35 AM EDT Jovanna Ross MD LAB Performing Organization Address [facility]/ZIP Co de Phone Number [facility] * THROMBOPLASTIN TIME, PARTIAL (06/01/2018 9:34 AM EDT) Partial Thromboplastin Time 31.4 24.1 - 39.3 sec 06/01/2018 1:23 PM EDT [facility] 06/01/2018 9:34 AM EDT 06/01/2018 9:35 AM EDT Jovanna Ross MD LAB Performing Organization Address [facility]/ZIP Co de Phone Number [facility] * PROTHROMBIN TIME (06/01/2018 9:34 AM EDT) Prothrombin Time 11.4 10.6 - 13.9 SEC 06/01/2018 1:23 PM EDT [facility] INR 0.96 06/01/2018 1:23 PM EDT [facility] 06/01/2018 9:34 AM EDT 06/01/2018 9:35 AM EDT Jovanna Ross MD LAB Performing Organization Address [facility] Co de Phone Number [facility] * CBC (AUTO DIFF PLATELET) (06/01/2018 9:34 AM EDT) WHITE BLOOD COUNT 8.8 4.8 - 10.8 x10-3/uL 06/01/2018 1:05 PM EDT [facility] RED BLOOD COUNT 5.2 4.5 - 5.5 x10-6/uL 06/01/2018 1:05 PM EDT [facility] Hemoglobin 15.9 13.5 - 17.5 g/dL 06/01/2018 1:05 PM EDT [facility] Hematocrit 46.2 42 - 54 % 06/01/2018 1:05 PM EDT [facility] MEAN CORPUSCULAR VOLUME 89.5 79 - 98 fL 06/01/2018 1:05 PM EDT [facility] MEAN CORPUSCULAR HEMOGLOBIN 30.8 27 - 32 pg 06/01/2018 1:05 PM EDT [facility] MEAN CORPUSCULAR HGB CONC 34.4 32 - 37 g/dL 06/01/2018 1:05 PM EDT [facility] RED CELL DISTRIBUTION WIDTH 12.7 11 - 15 % 06/01/2018 1:05 PM EDT [facility] PLT COUNT 232 130 - 400 x10-3/uL 06/01/2018 1:05 PM EDT [facility] MEAN PLATELET VOLUME 9.9 7 - 11 fL 06/01/2018 1:05 PM EDT [facility] NRBC % AUTO 0.0 <1 % 06/01/2018 1:05 PM EDT [facility] NEUTROPHILS % 57.0 % 06/01/2018 1:05 PM EDT [facility] LYMPH % 27.2 % 06/01/2018 1:05 PM EDT [facility] MONO % 10.9 % 06/01/2018 1:05 PM EDT [facility] EOS % 3.9 % 06/01/2018 1:05 PM EDT [facility] BASO % 0.7 % 06/01/2018 1:05 PM EDT [facility] IMMATURE GRANULOCYTES % 0.3 % 06/01/2018 1:05 PM EDT [facility] NRBC # AUTO 0.00 <0.1 x10-3/uL 06/01/2018 1:05 PM EDT [facility] NEUT # 5.03 1.5 - 7.0 x10-3/uL 06/01/2018 1:05 PM EDT [facility] LYMPH # 2.40 1 - 5.0 x10-3/uL 06/01/2018 1:05 PM EDT [facility] MONO # 0.96 0.2 - 1.0 x10-3/uL 06/01/2018 1:05 PM EDT [facility] EOS # 0.34 0 - 0.5 x10-3/uL 06/01/2018 1:05 PM EDT [facility] BASO # 0.06 0 - 0.2 x10-3/uL 06/01/2018 1:05 PM EDT [facility] IMMATURE GRANULOCYTES # 0.03 0 - 0.03 x10-3/uL 06/01/2018 1:05 PM EDT [facility] 06/01/2018 9:34 AM EDT 06/01/2018 9:35 AM EDT Jovanna Ross MD LAB [facility] * (ABNORMAL) COMPREHENSIVE METABOLIC PANEL (06/01/2018 9:34 AM EDT) GLUCOSE 111(H) 70 - 100 mg/dL 06/01/2018 1:21 PM EDT [facility] Comment:Reference range appl icable to fasting specimens only Blood Urea Nitrogen 27(H) 5 - 25 mg/dL 06/01/2018 1:21 PM EDT [facility] CREAT 1.02 0.7 - 1.3 mg/dL 06/01/2018 1:21 PM EDT [facility] GLOMERULAR FILTRATION RATE > 60 06/01/2018 1:21 PM EDT [facility] Comment: If patient is -[place], multiply result by 1.21 Chronic Kidney Disease: < 60 ml/min/1.73 square meters Kidney Failure: < 15 ml/min/1.73 square meters NA 142 133 - 145 mmol/L 06/01/2018 1:21 PM EDT [facility] K 4.2 3.5 - 5.5 mmol/L 06/01/2018 1:21 PM EDT [facility] CL 107 96 - 110 mmol/L 06/01/2018 1:21 PM EDT [facility] CARBON DIOXIDE (CO2) 27 21 - 32 mmol/L 06/01/2018 1:21 PM EDT [facility] ANION GAP 8 3 - 11 06/01/2018 1:21 PM EDT [facility] CALCIUM 9.0 8.5 - 10.5 mg/dL 06/01/2018 1:21 PM EDT [facility] TOTAL PROTEIN (TP) 7.3 6.0 - 8.0 G/dL 06/01/2018 1:21 PM EDT [facility] Albumin 3.9 3.2 - 5.0 G/dL 06/01/2018 1:21 PM EDT [facility] BILIRUBIN TOTAL 0.4 0.0 - 1.4 mg/dL 06/01/2018 1:21 PM EDT [facility] SGOT 42 10 - 42 U/L 06/01/2018 1:21 PM EDT [facility] SGPT 88(H) 10 - 60 U/L 06/01/2018 1:21 PM EDT [facility] ALK PHOS 89 42 - 121 U/L 06/01/2018 1:21 PM EDT [facility] 06/01/2018 9:34 AM EDT 06/01/2018 9:35 AM EDT Jovanna Ross MD LAB Performing Organization Address [facility] Co de Phone Number PARRIS MEJIA * EXTREMITY VEINS STUDY, COMPLETE-BILATERAL (02/19/2018 2:25 PM EST) 02/19/2018 2:33 PM EST Impressions [facility] [place] OTHER EXTERNAL - 02/19/2018 2:35 PM EST IMPRESSION: No evidence of deep vein thrombosis in either lower extremity. Long's cyst right popliteal fossa. Narrative [place] OTHER EXTERNAL - 02/19/2018 2:35 PM EST BILATERAL LOWER EXTREMITY VENOUS DOPPLER ULTRASOUND: HISTORY: Preop orthopedic surgery (left total knee replacement 02/27/2018) Both lower extremities were evaluated with venous Doppler ultrasound. The deep venous system including the common femoral, femoral, deep femoral takeoff, popliteal, posterior tibial, peroneal and gastrocnemius veins compress normally. The greater saphenous veins appears normal. There was normal waveform respiratory phasicity. There was normal augmentation of color flow and duplex Doppler wave form throughout the deep venous system during compression at the ankle. 2.0 x 0.6 x 4.2 cm elongated cystic fluid collection medial aspect right popliteal fossa. Procedure Note John Decker MD - 02/19/2018 BILATERAL LOWER EXTREMITY VENOUS DOPPLER ULTRASOUND: HISTORY: Preop orthopedic surgery (left total knee replacement02/27/2018) Both lower extremities were evaluated with venous Doppler ultrasound. The deep venous system including the common femoral, femoral, deep femoraltakeoff, popliteal, posterior tibial, peroneal and gastrocnemius veins compress normally. Thegreater saphenous veins appears normal. There was normal waveform respiratory phasicity.There was normal augmentation of color flow and duplex Doppler wave form throughout thedeep venous system during compression at the ankle. 2.0 x 0.6 x 4.2 cm elongated cystic fluid collection medial aspect rightpopliteal fossa. IMPRESSION IMPRESSION: No evidence of deep vein thrombosis in either lower extremity.Long's cyst right popliteal fossa. Jovanna Ross MD ULTRASOUND RALPH ALFARO OTHER EXTERNAL documented in this encounter Visit Diagnoses Diagnosis Preoperative examination Preoperative examination, unspecified Screening for deficiency anemia Screening for other and unspecified deficiency anemia shelter current use of anticoagulant therapy Preoperative examination Preoperative examination, unspecified Preoperative examination Preoperative examination, unspecified documented in this encounter Care Teams Toy Designer Relationship Specialty Start Date End Date Jovanna Ross MD PCP - General Internal Medicine 02/27/17 05/28/20 Delmis Rico MD PCP - General Internal Medicine 05/29/20 03/26/21 [facility] PCP - General Internal Medicine 03/27/21 documented as of this encounter
--- OUTSIDE RECORDS SUMMARY | 2024-07-05 09:17 | XMS_ITS | Encounter Summary ---
Author Organization [facility] Address [address] [place] [address] Care Team Providers Care Biodiesel Engine Specialist Name Role Phone Jovanna Ross MD Primary Care Provider Delmis Rodriguez MD Primary Care Provider Denisse Acosta, Pcp Primary Care Provider Unavailjong gong Encounter Details Date Type Department Care Team Description 02/27/2018 Release of Information Medical Records [address] [place] [address] Abstract, Provider Social History Tobacco Use Types [...] on filedocumented in this encounter Care Teams Biodiesel Engine Specialist Relationship Specialty Start Date End Date Jovanna Ross MD PCP - General Internal Medicine 02/27/17 05/28/20 Delmis Rico MD PCP - General Internal Medicine 05/29/20 03/26/21 [facility], Pcp PCP - General Internal Medicine 03/27/21 documented as of this encounter
--- OUTSIDE RECORDS SUMMARY | 2024-07-05 09:17 | XMS_ITS | Encounter Summary ---
Author Organization [facility] Address [address] [place] [address] Care Team Providers Care Bleach Supervisor Name Role Phone Deedee Lopez MD Primary Care Provider Un available Jovanna Ross MD Primary Care Provider Deedee Hunter MD Primary Care Provider Un available Jovanna Ross MD Primary Care Provider UnavailDelmis Herrera MD Primary Care Provider [facility], Pcp Primary Care Provider Unavailabl e Reason for Visit * Reason Onset Date Comments injection 11/01/2011 Encounter Details Date Type Department Care Team Description 11/01/2011 Telephone Physiatry - [address] [address] Jett Juarez DO injection Social History Tobacco [...] injection last injection was done 09/13/11 at [facility] please place order THANKS. [...] sacrum documented in this encounter Care Teams Bleach Supervisor Relationship Specialty Start Date End Date Deedee Lopez MD PCP - General 08/17/06 08/08/16 Jovanna Ross MD PCP - General Internal Medicine 08/09/16 09/15/16 Deedee Lopez MD PCP - General Internal Medicine 09/16/16 Jovanna Ross MD PCP - General Internal Medicine 02/27/17 05/28/20 Delmis Rico MD PCP - General Internal Medicine 05/29/20 03/26/21 [facility], Pcp PCP - General Internal Medicine 03/27/21 documented as of this encounter
--- OUTSIDE RECORDS SUMMARY | 2024-07-05 09:17 | XMS_ITS | Encounter Summary ---
Author Organization [facility] Address [address] [place] [address] Care Team Providers Care Admissions Dean Name Role Phone Jovanna Ross MD Primary Care Provider Delmis Rodriguez MD Primary Care Provider Denisse Acosta, Pcp Primary Care Provider Skyla gong Encounter Details Date Type Department Care Team Description 03/02/2018 [facility] Medical Records [address] [place] [id number] Allie Huizar Social History Tobacco Use Types [...] on filedocumented in this encounter Care Teams Admissions Dean Relationship Specialty Start Date End Date Jovanna Ross MD PCP - General Internal Medicine 02/27/17 05/28/20 Delmis Rico MD PCP - General Internal Medicine 05/29/20 03/26/21 Karla, Pcp PCP - General Internal Medicine 03/27/21 documented as of this encounter
--- OUTSIDE RECORDS SUMMARY | 2024-07-05 09:17 | XMS_ITS | Encounter Summary ---
Author Organization [facility] Address [address] [place] [address] Care Team Providers Care Vocational Nursing Instructor Name Role Phone Deedee Lopez MD Primary Care Provider Un available Jovanna Ross MD Primary Care Provider Deedee Hunter MD Primary Care Provider Un available Jovanna Ross MD Primary Care Provider UnavailDelmis Herrera MD Primary Care Provider [facility], Pcp Primary Care Provider Unavailjong e Encounter Details Date Type Department Care Team Description 06/26/2016 Hood Fitter Report Medical Records [address] [place] [id number] Robert Duncan MD Social History Tobacco Use Types Packs/Day [...] on filedocumented in this encounter Care Teams Vocational Nursing Instructor Relationship Specialty Start Date End Date Deedee Lopez MD PCP - General 08/17/06 08/08/16 Jovanna Ross MD PCP - General Internal Medicine 08/09/16 09/15/16 Deedee Lopez MD PCP - General Internal Medicine 09/16/16 Jovanna Ross MD PCP - General Internal Medicine 02/27/17 05/28/20 Delmis Rico MD PCP - General Internal Medicine 05/29/20 03/26/21 [facility], Pcp PCP - General Internal Medicine 03/27/21 documented as of this encounter
--- OUTSIDE RECORDS SUMMARY | 2024-07-05 09:17 | XMS_ITS | Encounter Summary ---
Author Organization [facility] Address [address] [place] [address] Care Team Providers Care Optometrist/Practice Owner Name Role Phone Jovanna Ross MD Primary Care Provider Delmis Rodriguez MD Primary Care Provider Denisse wikhushboo [facility], Pcp Primary Care Provider Skyla gong Encounter Details Date Type Department Care Team Description 02/03/2018 Orders Only Medicine/Pediatrics - [address] [phone] Pooja Hinojosa PA-C Elevated LFTs (Primary Dx); [...] chemistry documented in this encounter Care Teams Optometrist/Practice Owner Relationship Specialty Start Date End Date Jovanna Ross MD PCP - General Internal Medicine 02/27/17 05/28/20 Delmis Rico MD PCP - General Internal Medicine 05/29/20 03/26/21 [facility], Pcp PCP - General Internal Medicine 03/27/21 documented as of this encounter
--- OUTSIDE RECORDS SUMMARY | 2024-07-05 09:17 | XMS_ITS | Encounter Summary ---
Author Organization [facility] Address [address] [place] [address] Care Team Providers Care Floor Helper Name Role Phone Deedee Lopez MD Primary Care Provider Un available Jovanna Ross MD Primary Care Provider Deedee Hunter MD Primary Care Provider Un available Jovanna Ross MD Primary Care Provider UnavailDelmis Herrera MD Primary Care Provider [facility], Pcp Primary Care Provider Unavailabl e Reason for Visit * Reason Onset Date Comments Testing 03/23/2015 MRI Encounter Details Date Type Department Care Team Description 03/23/2015 Telephone Chiropractic - [address] [address] John Mason D.C. Testing (MRI) Social History Tobacco Use Types Packs/Day Years Used Date Smoking Tobacco: Former Cigarettes Q uit: 02/18/1996 Smokeless Tobacco: Never Alcohol Use Standard Drinks/Week Comments Yes 20 (1 standard drink = 0.6 oz pure alcohol) Up to 12 beers on his days off. Sex Assigned at Date Recorded Not on file documented as of this encounter Miscellaneous Notes * Telephone Encounter - John Mason D.C. - 03/24/2015 9:12 AM EST I did a peer to peer review and the MRI has been approved. Order # [id number]. Good for 60 days. Please schedule him at your convenience. Thank you, Dr Mason * Telephone Encounter - Jackie Degroot - 03/23/2015 11:[address] Mason, You placed an order for a MRI- This order has been denied by patient's insurance. Does not meet guideline. If you wish to have a case discussion with a physician reviewer you may call [phone] # [id number] Thanks, Jackie Martinez. documented in this encounter Plan of Treatment Not on file documented as of this encounter Visit Diagnoses Not on filedocumented in this encounter Care Teams Floor Helper Relationship Specialty Start Date End Date Deedee Lopez MD PCP - General 08/17/06 08/08/16 Jovanna Ross MD PCP - General Internal Medicine 08/09/16 09/15/16 Deedee Lopez MD PCP - General Internal Medicine 09/16/16 Jovanna Ross MD PCP - General Internal Medicine 02/27/17 05/28/20 Delmis Rico MD PCP - General Internal Medicine 05/29/20 03/26/21 [facility], Pcp PCP - General Internal Medicine 03/27/21 documented as of this encounter
--- OUTSIDE RECORDS SUMMARY | 2024-07-05 09:18 | XMS_ITS | Encounter Summary ---
Author Organization [facility] Address [address] [place] [address] Care Team Providers Care Laborer Tan House Name Role Phone Jovanna Ross MD Primary Care Provider Delmis Rodriguez MD Primary Care Provider [facility], Pcp Primary Care Provider Unavailabl e Reason for Visit * Reason Onset Date Comments refill request 09/15/2019 Encounter Details Date Type Department Care Team Description 09/15/2019 Telephone Medicine/Pediatrics - [address] [id number] Jovanna Ross MD refill request Social History Tobacco Use Types Packs/Day Years Used Date Smoking Tobacco: Former Cigarettes Q uit: 02/18/1996 Smokeless Tobacco: Never Alcohol Use Standard Drinks/Week Comments Yes 30 (1 standard drink = 0.6 oz pu re alcohol) Sex Assigned at Date Recorded Not on file documented as of this encounter Miscellaneous Notes * Telephone Encounter - Peter Bailey NP - 09/16/2019 1:30 PM EDT Still do not feel comfortable sending him flexiril as it will interact with his cymbalta. Also it is sedating so I would not encourage bed bug exterminator use with atarax - due to risk for fall and injuries. Iwill only give limited rx of tizanidine to be taken HS prn and he will need to f/u with PCP regarding long terms management. * Telephone Encounter - Jono Strickland - 09/16/2019 1:13 PM EDT Disregard the Flexeril, that has been prescribed by Dr Dahl as of yesterday. Please review for Hydroxyzine only. * Telephone Encounter - Peter Bailey NP - 09/16/2019 10:39 AM EDT There is no mention of either meds in the last apt. Not sure what this is being used for. At his age I don't feel comfortable placing him on both due to risk for falls and further injury. * Telephone Encounter - Hayley Mendez M.A. - 09/15/2019 1:37 PM EDT Refill pended- added flexeril back on list because he stated in his last appt that he was not taking it but he actually does documented in this encounter Plan of Treatment Not on file documented as of this encounter Visit Diagnoses Not on filedocumented in this encounter Care Teams Laborer Tan House Relationship Specialty Start Date End Date Jovanna Ross MD PCP - General Internal Medicine 02/27/17 05/28/20 Delmis Rico MD PCP - General Internal Medicine 05/29/20 03/26/21 [facility], Pcp PCP - General Internal Medicine 03/27/21 documented as of this encounter
--- OUTSIDE RECORDS SUMMARY | 2024-07-05 09:18 | XMS_ITS | Encounter Summary ---
Author Organization [facility] Address [address] [place] [address] Care Team Providers Care Mohs Surgeon/General Dermatologist Name Role Phone Jovanna Ross MD Primary Care Provider Delmis Rodriguez MD Primary Care Provider Denisse Acosta, Pcp Primary Care Provider Unavailjong gong Encounter Details Date Type Department Care Team Description 01/01/2018 Research Program Internship Report Medical Records [address] [place] [id number] Edinson Sam MD Social History Tobacco Use [...] on filedocumented in this encounter Care Teams Mohs Surgeon/General Dermatologist Relationship Specialty Start Date End Date Jovanna Ross MD PCP - General Internal Medicine 02/27/17 05/28/20 Delmis Rico MD PCP - General Internal Medicine 05/29/20 03/26/21 Karla, Pcp PCP - General Internal Medicine 03/27/21 documented as of this encounter
--- OUTSIDE RECORDS SUMMARY | 2024-07-05 09:18 | XMS_ITS | Encounter Summary ---
Author Organization [facility] Address [address] [place] [address] Care Team Providers Care Foreign Languages Professor Name Role Phone Jovanna Ross MD Primary Care Provider Delmis Rodriguez MD Primary Care Provider Denisse Acosta, Pcp Primary Care Provider Unavailjong gong Encounter Details Date Type Department Care Team Description 01/01/2018 Electronic Train Control Technician Report Medical Records [address] [place] [phone] Edinson Sam MD Social History Tobacco Use [...] on filedocumented in this encounter Care Teams Foreign Languages Professor Relationship Specialty Start Date End Date Jovanna Ross MD PCP - General Internal Medicine 02/27/17 05/28/20 Delmis Rico MD PCP - General Internal Medicine 05/29/20 03/26/21 Karla, Pcp PCP - General Internal Medicine 03/27/21 documented as of this encounter
--- OUTSIDE RECORDS SUMMARY | 2024-07-05 09:18 | XMS_ITS | Encounter Summary ---
Author Organization [facility] Address [address] [place] [address] Care Team Providers Care Transportation Assistant Name Role Phone Deedee Lopez MD Primary Care Provider Un available Jovanna Ross MD Primary Care Provider Deedee Hunter MD Primary Care Provider Un available Jovanna Ross MD Primary Care Provider UnavailDelmis Herrera MD Primary Care Provider [facility], Pcp Primary Care Provider Skyla gong Encounter Details Date Type Department Care Team Description 08/22/2009 Telephone Orthopedic Surgery - [address] [place] [address] Bairon Mullins MD Social History Tobacco Use [...] on filedocumented in this encounter Care Teams Transportation Assistant Relationship Specialty Start Date End Date Deedee Lopez MD PCP - General 08/17/06 08/08/16 Jovanna Ross MD PCP - General Internal Medicine 08/09/16 09/15/16 Deedee Lopez MD PCP - General Internal Medicine 09/16/16 Jovanna Ross MD PCP - General Internal Medicine 02/27/17 05/28/20 Delmis Rico MD PCP - General Internal Medicine 05/29/20 03/26/21 [facility], Pcp PCP - General Internal Medicine 03/27/21 documented as of this encounter
--- OUTSIDE RECORDS SUMMARY | 2024-07-05 09:18 | XMS_ITS | Encounter Summary ---
Author Organization [facility] Address [address] [place] [address] Care Team Providers Care Drywall Application Supervisor Name Role Phone Jovanna Ross MD Primary Care Provider Delmis Rodriguez MD Primary Care Provider Denisse Acosta, Pcp Primary Care Provider Skyla gong Encounter Details Date Type Department Care Team Description 11/25/2017 Property Maintenance Supervisor Report Medical Records [address] [place] [phone] Kody Resendiz PA-C Social History Tobacco Use [...] on filedocumented in this encounter Care Teams Drywall Application Supervisor Relationship Specialty Start Date End Date Jovanna Ross MD PCP - General Internal Medicine 02/27/17 05/28/20 Delmis Rico MD PCP - General Internal Medicine 05/29/20 03/26/21 Karla, Remington PCP - General Internal Medicine 03/27/21 documented as of this encounter
--- OUTSIDE RECORDS SUMMARY | 2024-07-05 09:18 | XMS_ITS | Encounter Summary ---
Author Organization [facility] Address [address] [place] [address] Care Team Providers Care Coating Mixer Supervisor Name Role Phone Jovanna Ross MD Primary Care Provider Delmis Rodriguez MD Primary Care Provider Denisse [facility], Pcp Primary Care Provider Unavailjong gong Encounter Details Date Type Department Care Team Description 08/26/2017 Orders Only Medicine/Pediatrics - [address] [id number] Pooja Hinojosa PA-C Elevated LFTs (Primary Dx) [...] NEGATIVE NEGATIVE 02/02/2018 7:39 PM EST [facility] Hepatitis B surface antigen NEGATIVE NEGATIVE 02/02/2018 7:49 PM EST [facility] Comment: Over the counter supplements containing high doses of biotin may interfere with this assay. ??If interference is suspected, patients shoud be retested after refraining from biotin supplements for 72 hours. Hepatitis C Virus Diagnostic NEGATIVE NEGATIVE 02/02/2018 8:18 PM EST [facility] HEPATITIS A ANTIBODY TOTAL NEGATIVE NEGATIVE 02/02/2018 [...] EST Pooja Hinojosa PA-C LAB [facility] * (ABNORMAL) HEPATIC [...] chemistry documented in this encounter Care Teams Coating Mixer Supervisor Relationship Specialty Start Date End Date Jovanna Ross MD PCP - General Internal Medicine 02/27/17 05/28/20 Delmis Rico MD PCP - General Internal Medicine 05/29/20 03/26/21 [facility], Pcp PCP - General Internal Medicine 03/27/21 documented as of this encounter
--- OUTSIDE RECORDS SUMMARY | 2024-07-05 09:18 | XMS_ITS | Encounter Summary ---
Author Organization [facility] Address [address] [place] [address] Care Team Providers Care Newspaper Clipper Name Role Phone Jovanna Ross MD Primary Care Provider Delmis Rodriguez MD Primary Care Provider [facility], Pcp Primary Care Provider Unavailabl e Reason for Visit * Reason Onset Date Comments Equipment Lead Feedback 10/21/2017 [facility] Encounter Details Date Type Department Care Team Description 10/21/2017 Telephone Adult [address] [address] Jovanna Ross MD Equipment Lead Feedback ([facility] - [facility]) Social History Tobacco Use Types Packs/Day Years Used Date Smoking Tobacco: Former Cigarettes Q uit: 02/18/1996 Smokeless Tobacco: Never Alcohol Use Standard Drinks/Week Comments Yes 30 (1 standard drink = 0.6 oz pu re alcohol) Sex Assigned at Date Recorded Not on file documented as of this encounter Miscellaneous Notes * Telephone Encounter - Jacquelyn Edwards - 10/22/2017 10:29 AM EDT images sent to [facility]. * Telephone Encounter - Oscar Crain - 10/21/2017 2:52 PM EDT Please push / upload images of knee done on 05/26/17 to pac [facility] ?? documented in this encounter Plan of Treatment Not on file documented as of this encounter Visit Diagnoses Not on filedocumented in this encounter Care Teams Newspaper Clipper Relationship Specialty Start Date End Date Jovanna Ross MD PCP - General Internal Medicine 02/27/17 05/28/20 Delmis Rico MD PCP - General Internal Medicine 05/29/20 03/26/21 [facility], Pcp PCP - General Internal Medicine 03/27/21 documented as of this encounter
--- OUTSIDE RECORDS SUMMARY | 2024-07-05 09:18 | XMS_ITS | Encounter Summary ---
Author Organization [facility] Address [address] [place] [address] Care Team Providers Care Financial Analyst Accountant Name Role Phone Deedee Lopez MD Primary Care Provider Un available Jovanna Ross MD Primary Care Provider Deedee Hunter MD Primary Care Provider Un available Jovanna Ross MD Primary Care Provider UnavailDelmis Herrera MD Primary Care Provider [facility], Pcp Primary Care Provider Unavailjong e Encounter Details Date Type Department Care Team Description 05/07/2011 Release of Information Medical Records [address] [place] [address] Abstract, Provider Social History Tobacco Use Types [...] on filedocumented in this encounter Care Teams Financial Analyst Accountant Relationship Specialty Start Date End Date Deedee Lopez MD PCP - General 08/17/06 08/08/16 Jovanna Ross MD PCP - General Internal Medicine 08/09/16 09/15/16 Deedee Lopez MD PCP - General Internal Medicine 09/16/16 Jovanna Ross MD PCP - General Internal Medicine 02/27/17 05/28/20 Delmis Rico MD PCP - General Internal Medicine 05/29/20 03/26/21 [facility], Pcp PCP - General Internal Medicine 03/27/21 documented as of this encounter
--- OUTSIDE RECORDS SUMMARY | 2024-07-05 09:18 | XMS_ITS | Encounter Summary ---
Author Organization [facility] Address [address] [place] [address] Care Team Providers Care Clinical Application Consultant Name Role Phone Deedee Lopez MD Primary Care Provider Un available Jovanna Ross MD Primary Care Provider Deedee Hunter MD Primary Care Provider Un available Jovanna Ross MD Primary Care Provider UnavailDelmis Herrera MD Primary Care Provider [facility], Pcp Primary Care Provider Unavailjong e Encounter Details Date Type Department Care Team Description 10/13/2009 [facility] Orthopedic Surgery - [address] [place] [address] Bairon Mullins MD Social History Tobacco Use [...] on filedocumented in this encounter Care Teams Clinical Application Consultant Relationship Specialty Start Date End Date Deedee Lopez MD PCP - General 08/17/06 08/08/16 Jovanna Ross MD PCP - General Internal Medicine 08/09/16 09/15/16 Deedee Lopez MD PCP - General Internal Medicine 09/16/16 Jovanna Ross MD PCP - General Internal Medicine 02/27/17 05/28/20 Delmis Rico MD PCP - General Internal Medicine 05/29/20 03/26/21 [facility], Pcp PCP - General Internal Medicine 03/27/21 documented as of this encounter
--- OUTSIDE RECORDS SUMMARY | 2024-07-05 09:18 | XMS_ITS | Encounter Summary ---
Author Organization [facility] Address [address] [place] [address] Care Team Providers Care Sample Preparation Supervisor Name Role Phone Deedee Lopez MD Primary Care Provider Un available Jovanna Ross MD Primary Care Provider Deedee Hunter MD Primary Care Provider Un available Jovanna Ross MD Primary Care Provider UnavailDelmis Herrera MD Primary Care Provider [facility], Pcp Primary Care Provider Unavailjong gong Encounter Details Date Type Department Care Team Description 04/18/2014 [facility] Medical Records [address] [place] [address] Abstract, Provider Social History Tobacco Use Types [...] on filedocumented in this encounter Care Teams Sample Preparation Supervisor Relationship Specialty Start Date End Date Deedee Lopez MD PCP - General 08/17/06 08/08/16 Jovanna Ross MD PCP - General Internal Medicine 08/09/16 09/15/16 Deedee Lopez MD PCP - General Internal Medicine 09/16/16 Jovanna Ross MD PCP - General Internal Medicine 02/27/17 05/28/20 Delmis Rico MD PCP - General Internal Medicine 05/29/20 03/26/21 [facility], Pcp PCP - General Internal Medicine 03/27/21 documented as of this encounter
--- OUTSIDE RECORDS SUMMARY | 2024-07-05 09:18 | XMS_ITS | Encounter Summary ---
Author Organization [facility] Address [address] [place] [address] Care Team Providers Care P 3 Armament/Ordnance Ima Technician Name Role Phone Jovanna Ross MD Primary Care Provider Delmis Rodriguez MD Primary Care Provider Denisse [facility], Pcp Primary Care Provider Skyla gong Encounter Details Date Type Department Care Team Description 09/16/2019 Orders Only Adult Medicine [address] [address] Peter Bailey, RADHA Social History Tobacco Use Types Packs/Day Years [...] on filedocumented in this encounter Care Teams P 3 Armament/Ordnance Ima Technician Relationship Specialty Start Date End Date Jovanna Ross MD PCP - General Internal Medicine 02/27/17 05/28/20 Delmis Rico MD PCP - General Internal Medicine 05/29/20 03/26/21 Karla, Remington PCP - General Internal Medicine 03/27/21 documented as of this encounter
== END 2024-07-01 09:06 | disposition home or self-care (01) ==
LOC: HO.HOSX 09:05
PROVIDERS: Visit Provider Orthopaedic Surgery
DX: M25.511 Pain in right shoulder (principal); M25.512 Pain in left shoulder; M25.871 Other specified joint disorders, right ankle and foot; M75.42 Impingement syndrome of left shoulder; M19.012 Primary osteoarthritis, left shoulder; M19.011 Primary osteoarthritis, right shoulder
CPT/HCPCS: 20610; 73030; J1010; J2003

== ENCOUNTER 2024-07-01 09:58 | Outpatient (AMB) | payer BC, SELFPAY ==
--- NOTE | 2024-07-01 10:03 | MHC.OFFVIS ---
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 He describes his pains as achy in nature. His symptoms have gotten worse over the last few months in spite of continued non operative treatments. He has tried Tylenol, Celebrex and Lyrica which gave him only mild relief. He reports significant weakness in his right shoulder as well. He has difficulty lifting his right hand above shoulder height. He has tried physical therapy exercises which aggravated his pain. Allergies No Known Allergies Allergy (Verified 07/01/24 10:04) Medication List - Last Reconciled 07/01/24 by Del Read MD albuterol sulfate 90 mcg/actuation 2 puffs inhalation Q4-6H PRN blood sugar diagnostic (OneTouch Ultra Test strips) As directed budesonide-formoterol 160-4.5 mcg/actuation (Breyna) 2 puffs inhalation BID celecoxib 200 mg PO DAILY 90 days cyclobenzaprine 10 mg (2 x 5 mg) PO .nightly PRN 30 days duloxetine 120 mg (2 x 60 mg) PO DAILY 90 days hydrochlorothiazide 50 mg PO DAILY lisinopril 20 mg PO DAILY 90 days lorazepam 0.5 mg PO BID PRN montelukast 10 mg PO DAILY 90 days omeprazole 20 mg PO DAILY 90 days ondansetron 4 mg PO Q8H PRN 30 days Ozempic (semaglutide) 2 mg (0.75 mL) subcut QWEEK NS pentoxifylline ER 400 mg PO BID 90 days pregabalin (Lyrica) 150 mg PO BID rosuvastatin 10 mg PO DAILY 90 days tadalafil 5 mg PO DAILY 90 days temazepam 15 mg PO BEDTIME PRN vitamin E (dl, acetate) 450 mg PO DAILY 90 days [facility] Medical History Type 2 diabetes mellitus Steatosis, liver Severe obesity Reactive airway disease Intervertebral disc disorder Lumbar radiculopathy Prediabetes Obstructive sleep apnea H/O peptic ulcer GERD (gastroesophageal reflux disease) Depression Benign essential HTN Asthma Arthritis Surgical History History of bilateral knee replacement Family History Mother Diabetes mellitus Kidney disease HTN (hypertension) Hypercholesteremia Father Heart attack HTN (hypertension) Hypercholesteremia Social History Housing: House Alcohol intake: current Patient Tobacco Use Status: Former Tobacco user Tobacco use type: Cigarette Years Smoked: Casual smoker e-Cigarette/Vaping Use: Never Used Second Hand Smoke Exposure: No Substance Use Type: Marijuana service: No Current occupational status: employed and retired Cognitive needs: No Hearing needs: Yes (tinnitus) Vision needs: Yes (reading glasses) Physical Exam Vital Signs: BMI result Body Mass Index 36.4 Const Other: Well-nourished well-developed very friendly male awake alert and oriented x3 in no acute distress Extrem Other: Bilateral upper extremity examination shows good capillary refill, no skin lesions noted, normal sensation light touch Bilateral shoulder examination shows positive impingement signs, tenderness over his acromioclavicular joint, no instability, 3/5 strength with testing of his right supraspinatus, 5/5 strength with testing of his left supraspinatus Office Procedures AMB Joint Injection/Aspiration Joint Injection/Aspiration Primary Site: left shoulder Prep: site was prepped using aseptic technique Injected: 40 mg of, DepoMedrol and 1% plain lidocaine Procedure: The patient tolerated the procedure well Coding 88105 - Large joint Procedure code (CPT) selection complete AMB Joint Injection/Aspiration Joint Injection/Aspiration Primary Site: right shoulder Prep: site was prepped using aseptic technique Injected: 40 mg of, DepoMedrol and 1% plain lidocaine Procedure: The patient tolerated the procedure well Coding 78777 - Large joint Procedure code (CPT) selection complete Results Reviewed Results Reviewed: X-rays of the patient's bilateral shoulder show severe acromioclavicular joint narrowing, type 2 acromion, no acute bony abnormalities Assessment & Plan Assessment & Plan (1) Impingement syndrome of left shoulder: Code(s): M75.42 - Impingement syndrome of left shoulder Category: Medical (2) Impingement of right shoulder: Code(s): M25.811 - Other specified joint disorders, right shoulder Category: Medical Plan Mr. Everett presents with bilateral shoulder pains due to impingement syndrome as well as possible right shoulder rotator cuff tearing. The risks and benefits of bilateral shoulder cortisone injections were discussed at length with the patient. The patient wished to proceed. He tolerated the injections well. He will continue with his home stretching program. He will contact me prior to his follow-up appointment in 3 months should any questions or concerns arise. Feel free to call me at any time should questions regarding his orthopedic management arise. I spent 21 minutes in reviewing the patient's records and imaging studies, seeing the patient and documenting in the medical record. Orders: Orders XR Shoulder Ramiro min 2V Today M25.511 - Pain in right shoulder, M25.512 - Pain in left shoulder AMB Joint Injection/Aspiration Today M25.811 - Other specified joint disorders, right shoulder AMB Joint Injection/Aspiration Today M75.42 - Impingement syndrome of left shoulder Coding Level of Care Code New Pt Level 3 (62939) Complex EM visit Add On G2211 Diagnoses Impingement syndrome of left shoulder M75.42 Impingement of right shoulder M25.811 CPT Codes Coding - 55175 Large joint: 38843 - Large joint ([id number]) Coding - 50465 Large joint: 36847 - Large joint ([id number])
[2024-07-01 10:04] VITALS: BMI 36.4
== END 2024-07-01 10:35 | disposition home or self-care (01) ==
LOC: HO.HOS 09:59
PROVIDERS: PCP Internal Medicine; Visit Provider Orthopaedic Surgery
DX: M75.42 Impingement syndrome of left shoulder (principal); M25.811 Other specified joint disorders, right shoulder
CPT/HCPCS: 20610; 99203

== ENCOUNTER → 2024-07-01 10:01 | Outpatient (BNV) | payer BC, SELFPAY | PROVIDERS: Visit Provider Radiology Diagnostic Radiology | DX: M25.511 Pain in right shoulder (principal) | CPT/HCPCS: 73030 ==

== ENCOUNTER 2024-09-30 09:42 | Outpatient (AMB) | payer BC, SELFPAY ==
--- NOTE | 2024-09-30 09:46 | MHC.OFFVIS ---
Vital Signs 09/30/24 09:55 Height 5 ft 10 in Weight 254 lb BMI 36.4 Intake Visit Reasons: Inj-B/L shoulder injection-last 07/01/24 Intake Note: Antony is a 59 year old male who presents with complaints of bilateral shoulder pains. He did have cortisone injections given into his shoulders at his last visit. He got fairly good relief from those injections. His pains have returned. He denies any weakness. He continues with his home stretching program. He wishes to hold off on surgery if at all possible. Allergies No Known Allergies Allergy (Verified 09/30/24 09:54) Medication List - Last Reconciled 10/01/24 by Del Read MD albuterol sulfate 90 mcg/actuation 2 puffs inhalation Q4-6H PRN blood sugar diagnostic ([email or web address] Ultra Test strips) As directed budesonide-formoterol 160-4.5 mcg/actuation (Breyna) 2 puffs inhalation BID celecoxib 200 mg PO DAILY 90 days cyclobenzaprine 10 mg (2 x 5 mg) PO .nightly PRN 30 days duloxetine 120 mg (2 x 60 mg) PO DAILY 90 days fluticasone propionate 50 mcg/actuation 2 sprays intranasal DAILY hydrochlorothiazide 50 mg PO DAILY lisinopril 20 mg PO DAILY 90 days lorazepam 0.5 mg PO BID PRN montelukast 10 mg PO DAILY 90 days omeprazole 20 mg PO DAILY 90 days ondansetron 4 mg PO Q8H PRN 30 days Ozempic (semaglutide) 2 mg (0.75 mL) subcut QWEEK NS pentoxifylline ER 400 mg PO BID 90 days pregabalin (Lyrica) 150 mg PO BID rosuvastatin 10 mg PO DAILY 90 days tadalafil 5 mg PO DAILY 90 days temazepam 15 mg PO BEDTIME PRN vitamin E (dl, acetate) 450 mg PO DAILY 90 days [facility] Medical History Type 2 diabetes mellitus Steatosis, liver Severe obesity Reactive airway disease Intervertebral disc disorder Lumbar radiculopathy Prediabetes Obstructive sleep apnea H/O peptic ulcer GERD (gastroesophageal reflux disease) Depression Benign essential HTN Asthma Arthritis Surgical History History of bilateral knee replacement Family History Mother Diabetes mellitus Kidney disease HTN (hypertension) Hypercholesteremia Father Heart attack HTN (hypertension) Hypercholesteremia Social History Housing: House Alcohol intake: current Patient Tobacco Use Status: Former Tobacco user Tobacco use type: Cigarette Years Smoked: Casual smoker e-Cigarette/Vaping Use: Never Used Second Hand Smoke Exposure: No Substance Use Type: Marijuana service: No Current occupational status: employed and retired Cognitive needs: No Hearing needs: Yes (tinnitus) Vision needs: Yes (reading glasses) Physical Exam Vital Signs: BMI result Body Mass Index 36.4 Const Other: Well-nourished well-developed very friendly male awake alert and oriented x3 in no acute distress Extrem Other: Bilateral upper extremity examination shows good capillary refill, no skin lesions noted, normal sensation light touch Bilateral shoulder examination shows forward flexion to 170 degrees, external rotation to 50 degrees, internal rotation to level L2, 4+ out of 5 strength with supraspinatus testing, positive impingement signs, no instability Office Procedures AMB Joint Injection/Aspiration Joint Injection/Aspiration Primary Site: left shoulder Prep: site was prepped using aseptic technique Injected: 40 mg of, DepoMedrol and 1% plain lidocaine Procedure: The patient tolerated the procedure well Coding 06146 - Large joint Procedure code (CPT) selection complete AMB Joint Injection/Aspiration Joint Injection/Aspiration Primary Site: right shoulder Prep: site was prepped using aseptic technique Injected: 40 mg of, DepoMedrol and 1% plain lidocaine Procedure: The patient tolerated the procedure well Coding 68255 - Large joint Procedure code (CPT) selection complete Assessment & Plan Assessment & Plan (1) Impingement syndrome of left shoulder: Code(s): M75.42 - Impingement syndrome of left shoulder Category: Medical (2) Impingement of right shoulder: Code(s): M25.811 - Other specified joint disorders, right shoulder Category: Medical Plan Mr. Everett presents with bilateral shoulder pains due to impingement syndrome. The risks and benefits of bilateral shoulder cortisone injections were discussed at length with the patient. The patient wished to proceed. He tolerated the injections well. He will continue with his home exercise program. He will contact me prior to his follow-up appointment in 3 months should any questions or concerns arise. I spent 22 minutes in reviewing the patient's records and imaging studies, seeing the patient and documenting in the medical record. Orders: Orders AMB Joint Injection/Aspiration 09/30/24 M75.42 - Impingement syndrome of left shoulder AMB Joint Injection/Aspiration 09/30/24 M25.811 - Other specified joint disorders, right shoulder Coding Level of Care Code Est Pt Level 3 (25428) Complex EM visit Add On G2211 Diagnoses Impingement syndrome of left shoulder M75.42 Impingement of right shoulder M25.811 CPT Codes Coding - 13465 Large joint: 82048 - Large joint ([id number]) Coding - 49343 Large joint: 70762 - Large joint ([id number])
[2024-09-30 09:55] VITALS: BMI 36.4
== END 2024-09-30 10:08 | disposition home or self-care (01) ==
LOC: HO.HOS 09:43
PROVIDERS: Visit Provider Orthopaedic Surgery
DX: M75.42 Impingement syndrome of left shoulder (principal); M25.811 Other specified joint disorders, right shoulder
CPT/HCPCS: 20610; 99213

== ENCOUNTER → 2024-09-30 09:42 | Outpatient (BNVA) | payer BC, SELFPAY | PROVIDERS: Visit Provider Orthopaedic Surgery | DX: M25.512 Pain in left shoulder (principal); M25.511 Pain in right shoulder; M75.42 Impingement syndrome of left shoulder; M25.811 Other specified joint disorders, right shoulder | CPT/HCPCS: 20610; J1010; J2003 ==

== ENCOUNTER 2024-12-03 15:07 | Outpatient (REF) | payer BC, SELFPAY ==
[2024-12-03 18:42] LABS: Alanine Aminotransferase 60 U/L (0-40); Albumin Level 4.6 g/dL (3.5-5.0); Alkaline Phosphatase 74 U/L (39-117); Anion Gap 14 (12-20); Aspartate Amino Transferase 42 U/L (5-37); Blood Urea Nitrogen 21 mg/dL (9-16); Calcium 9.9 mg/dL (8.4-10.2); Carbon Dioxide 26 mmol/L (22-29); Chloride 103 mmol/L (96-108); Estimated Glomerular Filt Rate > 60; Potassium 3.2 mmol/L (3.3-5.1); Sodium 140 mmol/L (135-145); Total Protein 7.5 g/dL (6.5-8.0)
[2024-12-03 19:25] LABS: Folate 14.1 ng/mL (> or = 4.0); Prostate Specific Antigen 0.85 ng/mL (<0.05-4.0); Vitamin B12 1251 pg/mL (200-900)
== END 2024-12-03 15:08 | disposition home or self-care (01) ==
LOC: HO.WFDLDS 15:07
PROVIDERS: Visit Provider Internal Medicine
DX: I10 Essential (primary) hypertension (principal); E11.59 Type 2 diabetes mellitus with other circulatory complications; E11.69 Type 2 diabetes mellitus with other specified complication; E11.40 Type 2 diabetes mellitus with diabetic neuropathy, unspecified; G47.33 Obstructive sleep apnea (adult) (pediatric); K21.9 Gastro-esophageal reflux disease without esophagitis; M19.90 Unspecified osteoarthritis, unspecified site; G47.00 Insomnia, unspecified; N52.1 Erectile dysfunction due to diseases classified elsewhere; M25.50 Pain in unspecified joint; E66.01 Morbid (severe) obesity due to excess calories; Z12.5 Encounter for screening for malignant neoplasm of prostate; Z68.36 Body mass index [BMI] 36.0-36.9, adult
CPT/HCPCS: 36415; 80053; 82607; 82746; 83036; 83721; 84153; 96127; 96160

== ENCOUNTER 2024-12-03 15:07 | Outpatient (AMB) | payer BC, SELFPAY ==
--- NOTE | 2024-12-03 15:11 | MHC.PC.OV ---
Vital Signs 12/03/24 15:17 Height 5 ft 10 in Weight 255 lb 2 oz BMI 36.6 BP 130/78 Blood Pressure Location Rt brachial Position Sitting Respiration 18 Pulse 101 H Pulse Source Pulse Oximeter Temp 98.1 F Temp Source Oral Pulse Oximetry (%) 96 Oxygen Delivery Method Room Air Intake Visit Reasons: f/up bp Intake Note: Follow Up Allergies No Known Allergies Allergy (Verified 12/03/24 15:14) Tobacco use date assessed: 05/10/24 Dental Screening Dental Screen Date: 08/15/23 Did you have a dental visit in the last 12 months?: No Did you have a dental problem in the last 6 months where you did not have access to dental care?: Yes Was dental information given to patient?: Yes HPI HPI Comments History of Present Illness Details The patient is a 59 year old male with a past medical history of prediabetes, ANTIONE, hypertension, GERD/PUD, OA, insomnia, presenting for follow up Depression/Insomnia-On cymbalta. Has lorazepam prn anxiety. Sleep was terrible. Trazodone, lunesta and ambien have not worked in the past. This has improved with temazepam MSK: stable joint pains, muscle pain and fatigue. Bilateral shoulder pain, worse with traffic details. Lyrica has taken the edge of neuropathy but still has considerable discomfort Diabetes-On ozempic. Previously on max mounjaro. A1C has been excellent. A1C 5.7%. Gets eye exams-utd. Has not been able to lose any weight. Cardiovascular -On lisinopril, crestor, hctz Urologic-Following with [facility] for PD Asthma-On breyna. Breathing is stable. Tdap 07/2016 Colonoscopy 09/09/2016 ROS see HPI PHYSICAL EXAM: GENERAL: Alert and oriented x 3. NAD EYES: EOMI. Anicteric. HENT: Moist mucous membranes. No scleral icterus. No cervical lymphadenopathy. LUNGS: Clear to auscultation bilaterally. CARDIOVASCULAR: Regular rate and rhythm. No murmur. No JVD. ABDOMEN: Soft, non-tender +bs EXTREMITIES: No edema. Non-tender. SKIN: No rashes or lesions. Warm. NEUROLOGIC: No focal neurological deficits. CN II-XII grossly intact PSYCHIATRIC: Cooperative. Appropriate mood and affect [facility] Medical History Type 2 diabetes mellitus Steatosis, liver Severe obesity Reactive airway disease Intervertebral disc disorder Lumbar radiculopathy Prediabetes Obstructive sleep apnea H/O peptic ulcer GERD (gastroesophageal reflux disease) Depression Benign essential HTN Asthma Arthritis Surgical History History of bilateral knee replacement Family History Mother Diabetes mellitus Kidney disease HTN (hypertension) Hypercholesteremia Father Heart attack HTN (hypertension) Hypercholesteremia Social History Housing: House Alcohol intake: current Patient Tobacco Use Status: Former Tobacco user Tobacco use type: Cigarette Years Smoked: Casual smoker e-Cigarette/Vaping Use: Never Used Second Hand Smoke Exposure: No Substance Use Type: Marijuana service: No Current occupational status: employed and retired Cognitive needs: No Hearing needs: Yes (tinnitus) Vision needs: Yes (reading glasses) Questionnaire PHQ-9 Over the last 2 weeks, how often have you been bothered by any of the following problems? 1. Little interest or pleasure in doing things: not at all 2. Feeling down, depressed, or hopeless: not at all 3. Trouble falling or staying asleep, or sleeping too much: several days 4. Feeling tired or having little energy: not at all 5. Poor appetite or overeating: not at all 6. Feeling bad about yourself - or that you are a failure or have let yourself or your family down: not at all 7. Trouble concentrating on things, such as reading the newspaper or watching television: not at all 8. Moving or speaking so slowly that other people could have noticed. Or the opposite - being so fidgety or restless that you have been moving around a lot more than usual: not at all 9. Thoughts that you would be better off or of hurting yourself in some way: not at all Total score: 1 Depression Screening Interpretation: Negative Depression Screening Done: Yes 43940 - PHQ-9 Billing: Yes Source: Developed by Drs. Jay Jauregui, Marisol Hobbs, Jaren Mari and colleagues, with an educational clive from [employer]. Thrive Questionnaire Date Thrive assessed: 05/10/24 I am a: Patient What is your living situation today?: I have a steady place to live Within the past 12 months, did the food you bought not last and you didn't have the money to get more?: I choose not to answer this question Within the past 12 months, did you worry whether your food would run out before you got money to buy more?: Never true Do you have trouble paying for medicines?: No Do you have trouble getting transportation to medical appointments?: No Do you have trouble paying your heating and electricity bill?: No Do you have trouble taking care of your child, family member or friend?: No Do you have trouble with day-to-day activities such as bathing, preparing meals, shopping, managing finances, etc.?: No Are you currently unemployed and looking for a job?: Yes Are you interested in more education?: No Please select the resources that you would like help with: None Currently or been in a relationship where the following occur: No concerns reported THRIVE Score: 0 MAGDALENA-7 AMB Questionnaire MAGDALENA-7 Date MAGDALENA - 7 assessed: 05/10/24 Source: Developed by Drs. Jay Jauregui, Marisol Hobbs, Jaren Mari and colleagues, with an educational clive from [employer]. ACT Questionnaire In the past 4 weeks, how much of the time did your asthma keep you from getting as much done at work, school or at home?: None of the time During the past 4 weeks, how often have you had shortness of breath?: Not at all During the past 4 weeks, how often did your asthma symptoms wake you up at night or earlier than usual in the morning?: Once or twice per week During the past 4 weeks, how often have you had to use your rescue inhaler or nebulizer medication?: Not at all How would you rate your asthma control during the past 4 weeks?: Completely controlled ACT Interpretation: Negative Score: 24 Physical exam (Primary Care) Vital Signs: Last Vital Signs Temp 98.1 F 12/03/24 15:17 Pulse 101 H 12/03/24 15:17 Resp 18 12/03/24 15:17 BP 130/78 12/03/24 15:17 Pulse Ox 96 12/03/24 15:17 Oxygen Delivery Method Room Air 12/03/24 15:17 BMI result Body Mass Index 36.6 Tobacco/Smoking Status: Tobacco use Status Tobacco use date assessed 05/10/24 12/03/24 15:13 Patient Tobacco Use Status Former Tobacco user 12/03/24 15:13 Tobacco use type Cigarette 12/03/24 15:13 e-Cigarette/Vaping Use Never Used 12/03/24 15:13 Depression Screening Interpretation: Negative Thrive Assessment: Date of Thrive Assessment Date Thrive assessed 05/10/24 12/03/24 15:13 Currently or been in a relationship where the following occur: No concerns reported Coding Level of Care Code Est Pt Level 4 (93510) Complex EM visit Add On G2211 Diagnoses Type 2 diabetes mellitus with other circulatory complication, without long-term current use of insulin E11.59 Diabetes mellitus filler leaf cutter long insulin use: without care home use Diabetes mellitus complication status: with circulatory complication Diabetes mellitus complication detail: with other circulatory complications Erectile dysfunction associated with type 2 diabetes mellitus E11.69; N52.1 Polyarthralgia M25.50 Severe obesity E66.01 Additional Codes Asthma Control Questionnaire - ACT Interpretation: Negative ([id number]) PHQ-9 - 03801 - PHQ-9 Billing: Yes ([id number]) Assessment & Plan Assessment & Plan (1) Type 2 diabetes mellitus: Code(s): E11.9 - Type 2 diabetes mellitus without complications Category: Medical Qualifiers: Diabetes mellitus filler leaf cutter long insulin use: without filler leaf cutter long use Diabetes mellitus complication status: with circulatory complication Diabetes mellitus complication detail: with other circulatory complications Qualified Code(s): E11.59 - Type 2 diabetes mellitus with other circulatory complications (2) Erectile dysfunction associated with type 2 diabetes mellitus: Code(s): E11.69 - Type 2 diabetes mellitus with other specified complication; N52.1 - Erectile dysfunction due to diseases classified elsewhere Category: Medical (3) Polyarthralgia: Code(s): M25.50 - Pain in unspecified joint Category: Medical (4) Severe obesity: Code(s): E66.01 - Morbid (severe) obesity due to excess calories Category: Medical Plan Type 2 diabetes-controlled on current medication Obesity-trial of phentermine. Advised to monitor BP on medication. Blood pressure has been controlled Asthma has been stable Neuropathy-Increase lyrica dose Labs ordered. Orders: Orders Comprehensive Met. Panel 12/03/24.59 - Type 2 diabetes mellitus with other circulatory complications, G62.9 - Polyneuropathy, unspecified, Z12.5 - Encounter for screening for malignant neoplasm of prostate LDL Cholesterol Direct 12/03/24.59 - Type 2 diabetes mellitus with other circulatory complications, G62.9 - Polyneuropathy, unspecified, Z12.5 - Encounter for screening for malignant neoplasm of prostate Hemoglobin A1c 12/03/24. - Type 2 diabetes mellitus with other circulatory complications, G62.9 - Polyneuropathy, unspecified, Z12.5 - Encounter for screening for malignant neoplasm of prostate Prostate Specific Antigen 12/03/24.59 - Type 2 diabetes mellitus with other circulatory complications, G62.9 - Polyneuropathy, unspecified, Z12.5 - Encounter for screening for malignant neoplasm of prostate Vitamin B12 and Folate 12/03/24.59 - Type 2 diabetes mellitus with other circulatory complications Medications: New phentermine must administer 30 minutes before or 1-2 hours after breakfast shirley [id number] [facility] GroupGDRX Member [id number] 37.5 mg PO DAILY 30 caps 3RF pregabalin (Lyrica) 225 mg PO BID 180 caps 1RF Discontinued pregabalin (Lyrica) Discontinued Reason: Doctor's Order 150 mg PO BID 180 caps 3RF
[2024-12-03 15:17] VITALS: BP 130/78; PULSE 101; RESP 18; TEMP 36.7; O2SAT 96; BMI 36.6
== END 2024-12-03 15:40 | disposition home or self-care (01) ==
LOC: HO.HMCFM 15:08
PROVIDERS: Visit Provider Internal Medicine
DX: E11.59 Type 2 diabetes mellitus with other circulatory complications (principal); E11.69 Type 2 diabetes mellitus with other specified complication; N52.1 Erectile dysfunction due to diseases classified elsewhere; M25.50 Pain in unspecified joint; E66.01 Morbid (severe) obesity due to excess calories

== ENCOUNTER 2024-12-31 10:51 | Outpatient (AMB) | payer BC, SELFPAY ==
--- NOTE | 2024-12-31 11:22 | A.OFFVIS_ITS ---
Vital Signs 12/31/24 11:27 Height 5 ft 10 in Weight 260 lb 9.382 oz BMI 37.4 BP 134/92 H Blood Pressure Location Rt brachial Position Sitting Pulse 86 Pulse Source Pulse Oximeter Pulse Oximetry (%) 96 Oxygen Delivery Method Room Air Intake Visit Reasons: joint pain Intake Note: Patient presents for joint pain. Patient stated c/o of joint pain all over his body. Allergies No Known Allergies Allergy (Verified 12/31/24 11:27) Medication List - Last Reconciled 12/31/24 by Isatu Alvarez MD albuterol sulfate 90 mcg/actuation 2 puffs inhalation Q4-6H PRN blood sugar diagnostic ([employer] Ultra Test strips) As directed budesonide-formoterol 160-4.5 mcg/actuation (Breyna) 2 puffs inhalation BID celecoxib 200 mg PO DAILY 90 days cyclobenzaprine 10 mg (2 x 5 mg) PO .nightly PRN 30 days duloxetine 120 mg (2 x 60 mg) PO DAILY 90 days fluticasone propionate 50 mcg/actuation 2 sprays intranasal DAILY hydrochlorothiazide 50 mg PO DAILY lisinopril 20 mg PO DAILY 90 days lorazepam 0.5 mg PO BID PRN montelukast 10 mg PO DAILY 90 days omeprazole 20 mg PO DAILY 90 days ondansetron 4 mg PO Q8H PRN 30 days Ozempic (semaglutide) 2 mg (0.75 mL) subcut QWEEK NS pentoxifylline ER 400 mg PO BID 90 days phentermine 37.5 mg PO DAILY pregabalin (Lyrica) 225 mg PO BID rosuvastatin 10 mg PO DAILY 90 days tadalafil 5 mg PO DAILY 90 days temazepam 15 mg PO BEDTIME PRN temazepam 15 mg PO BEDTIME PRN vitamin E (dl, acetate) 450 mg PO DAILY 90 days HPI Comments Details: Patient is a 59-year-old male with asthma, hypertension, hyperlipidemia, diabetes complicated by peripheral neuropathy and polyarticular osteoarthritis here today for evaluation of polyarthralgias Patient has a known longstanding history of osteoarthritis. 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 Most recent x-rays show bilateral AC degenerative disease No swelling Has AM stiffness lasting 30 mins but no prolonged AM stiffness No significant family history Current complaints are neck pain with TENS like sensation over the left upper limb [facility] Medical History Type 2 diabetes mellitus Steatosis, liver Severe obesity Reactive airway disease Intervertebral disc disorder Lumbar radiculopathy Prediabetes Obstructive sleep apnea H/O peptic ulcer GERD (gastroesophageal reflux disease) Depression Benign essential HTN Asthma Arthritis Surgical History History of bilateral knee replacement Family History Mother Diabetes mellitus Kidney disease HTN (hypertension) Hypercholesteremia Father Heart attack HTN (hypertension) Hypercholesteremia Social History Housing: House Alcohol intake: current Patient Tobacco Use Status: Former Tobacco user Tobacco use type: Cigarette Years Smoked: Casual smoker e-Cigarette/Vaping Use: Never Used Second Hand Smoke Exposure: No Substance Use Type: Marijuana service: No Current occupational status: employed and retired Cognitive needs: No Hearing needs: Yes (tinnitus) Vision needs: Yes (reading glasses) Review of Systems Narrative Review of Systems Constitutional: Denies fever, chills, weight loss ENT: Denies vision changes, eye pain or eye redness, dental caries, dry mouth GI: Denies nausea, vomiting, diarrhea, abdominal pain, change in BM Pulm: Denies SOB, HEADLEY, hemoptysis, wheezing Cards: Denies chest pain, palpitations Skin: Denies Raynaud's, rash, nail changes, photosensitivity, E BUSINESS MANAGER: Denies headaches, weakness, paresthesias, recurrent falls MSK: as per HPI All other systems reviewed and are unremarkable except noted above Physical Exam Exam Exam: Vital signs reviewed Physical Examination CONSTITUITIONAL Patient alert and cooperative. Well appearing and in no apparent painful distress MSK Hands * Right Hand: Able to make a fist. No swelling or tenderness to palpation of the MCPs, PIPs or DIPs. * Left Hand: Able to make a fist. No swelling or tenderness to palpation of the MCPs, PIPs or DIPs. * Herbedens nodes noted bilaterally Wrists * Right Wrist: Full ROM to flexion and extension. No swelling or TTP * Left Wrist: Full ROM to flexion and extension. No swelling or TTP Elbows * Right Elbow: Full ROM. No swelling or TTP. No TTP of the medial epicondyle. No TTP of the lateral epicondyle * Left Elbow: Full ROM. No swelling or TTP. No TTP of the medial epicondyle. No TTP of the lateral epicondyle Shoulders * Right shoulder: Full ROM. No swelling noted. No TTP of the AC joint. No TTP of the subacromial bursa. No TTP of the posterior shoulder * Left shoulder: Full ROM. No swelling noted. No TTP of the AC joint. No TTP of the subacromial bursa. No TTP of the posterior shoulder Hips * Right hip: Good ROM. No pain elicited with hip flexion/internal rotation/external rotation * Left hip: Good ROM. No pain elicited with hip flexion/internal rotation/external rotation Hip bursa: Tenderness to palpation bilaterally Knees * Right knee: No swelling noted. No TTP of the knee joint line. No TTP of pes anserine bursa * Left knee: No swelling noted. No TTP of the knee joint line. No TTP of pes anserine bursa. Ankles * Right ankle: Good ankle dorsiflexion and plantar flexion. No swelling. No TTP of the ankle joint * Left ankle: Good ankle dorsiflexion and plantar flexion. No swelling. No TTP of the ankle joint Feet * Right foot: Negative squeeze test * Left foot: Negative squeeze test Tender points? * No tenderness to palpation of the bilateral trapezius, supraspinatus, anterior costochondral junctions, bilateral suboccipital muscle insertions SKIN No rashes Vital Signs: Last Vital Signs Pulse 86 12/31/24 11:27 BP 134/92 H 12/31/24 11:27 Pulse Ox 96 12/31/24 11:27 Oxygen Delivery Method Room Air 12/31/24 11:27 BMI result Body Mass Index 37.4 Results Reviewed Results Reviewed: XR Bilateral Shoulders 06/2024 FINDINGS: Four views of the bilateral shoulders are submitted. Osseous mineralization is normal. There is no fracture or dislocation. The glenohumeral joints are maintained. There is moderate osteoarthritis of the bilateral AC joints, with joint space narrowing and osteophyte formation. The soft tissues are unremarkable. IMPRESSION: 1 osteoarthritis of the bilateral AC joints. Assessment & Plan Assessment & Plan (1) Polyarticular osteoarthritis: Code(s): M15.9 - Polyosteoarthritis, unspecified Plan: #Polyarticular OA Patient is a 59-year-old male with known polyarticular osteoarthritis here today for additional treatment options. Had a long discussion with the patient about osteoarthritis, the nature of the disease, of the pathophysiology behind the disease and its propensity for progression. At this time his current treatment regime including orthopedic interventions with cortisone injections is currently at the limit of the therapeutics that we have available for osteoarthritis. I do not believe that this patient has any underlying inflammatory arthritis at this time. I will send him to get an x-ray of his neck as well as an EMG given his neuropathic type symptoms Plan - No evidence of inflammatory arthritis - EMG of left upper extremity - XR C spine - RTC prn Plan I spent 45 minutes reviewing the record and labs, taking a history, examining the patient, discussing the treatment plan, ordering diagnostic work up and documenting in the medical record Orders: Orders XR cervical spine 4V Today M54.2 - Cervicalgia NE electromyogram (EMG) Today R20.0 - Anesthesia of skin NE nerve conduction velocity Today R20.0 - Anesthesia of skin Coding Level of Care Code New Pt Level 4 (05034) Diagnoses Polyarticular osteoarthritis M15.9
[2024-12-31 11:27] VITALS: BP 134/92; PULSE 86; O2SAT 96; BMI 37.4
== END 2024-12-31 12:07 | disposition home or self-care (01) ==
LOC: HO.RHES 10:52
PROVIDERS: PCP Internal Medicine; Visit Provider Student in an Organized Health Care Education/Training Program
DX: M15.9 Polyosteoarthritis, unspecified (principal)
CPT/HCPCS: 99204

== ENCOUNTER 2025-01-06 09:45 | Outpatient (AMB) | payer BC, SELFPAY ==
--- NOTE | 2025-01-06 09:47 | A.OFFVIS_ITS ---
Vital Signs 01/06/25 09:51 Height 5 ft 10 in Weight 260 lb BMI 37.3 Intake Visit Reasons: Inj-B/L shoulder injection-last 09/30/24, neck pain Intake Note: Antony is a 59 year old male who presents with complaints of progressively worsening neck pain which radiates down his left arm as well as associated left arm weakness and numbness. The patient describes his neck pain as sharp in nature. His neck pain has gotten worse over the last year in spite of continued non operative treatments. Also has bilateral shoulder pains. He has had cortisone injections into his shoulders in the past which gave him fairly good relief. He has failed the last 6 weeks of conservative treatment which has included Tylenol, Celebrex, a home exercise program and physical therapy exe rcises. Allergies No Known Allergies Allergy (Verified 01/06/25 09:51) Medication List - Last Reconciled 01/06/25 by Del Read MD albuterol sulfate 90 mcg/actuation 2 puffs inhalation Q4-6H PRN blood sugar diagnostic ([employer] Ultra Test strips) As directed budesonide-formoterol 160-4.5 mcg/actuation (Breyna) 2 puffs inhalation BID celecoxib 200 mg PO DAILY 90 days cyclobenzaprine 10 mg (2 x 5 mg) PO .nightly PRN 30 days duloxetine 120 mg (2 x 60 mg) PO DAILY 90 days fluticasone propionate 50 mcg/actuation 2 sprays intranasal DAILY hydrochlorothiazide 50 mg PO DAILY lisinopril 20 mg PO DAILY 90 days lorazepam 0.5 mg PO BID PRN montelukast 10 mg PO DAILY 90 days omeprazole 20 mg PO DAILY 90 days ondansetron 4 mg PO Q8H PRN 30 days Ozempic (semaglutide) 2 mg (0.75 mL) subcut QWEEK NS pentoxifylline ER 400 mg PO BID 90 days phentermine 37.5 mg PO DAILY pregabalin (Lyrica) 225 mg PO BID rosuvastatin 10 mg PO DAILY 90 days tadalafil 5 mg PO DAILY 90 days temazepam 15 mg PO BEDTIME PRN temazepam 15 mg PO BEDTIME PRN vitamin E (dl, acetate) 450 mg PO DAILY 90 days [facility] Medical History Type 2 diabetes mellitus Steatosis, liver Severe obesity Reactive airway disease Intervertebral disc disorder Lumbar radiculopathy Prediabetes Obstructive sleep apnea H/O peptic ulcer GERD (gastroesophageal reflux disease) Depression Benign essential HTN Asthma Arthritis Surgical History History of bilateral knee replacement Family History Mother Diabetes mellitus Kidney disease HTN (hypertension) Hypercholesteremia Father Heart attack HTN (hypertension) Hypercholesteremia Social History Housing: House Alcohol intake: current Patient Tobacco Use Status: Former Tobacco user Tobacco use type: Cigarette Years Smoked: Casual smoker e-Cigarette/Vaping Use: Never Used Second Hand Smoke Exposure: No Substance Use Type: Marijuana service: No Current occupational status: employed and retired Cognitive needs: No Hearing needs: Yes (tinnitus) Vision needs: Yes (reading glasses) Physical Exam Vital Signs: BMI result Body Mass Index 37.3 Neck Other: Cervical spine examination shows pain with range of motion, left-sided paraspinal muscle tenderness, positive Spurling's test, 4/5 strength with testing of his left biceps and wrist extensors when compared to 5/5 strength on his right side Extrem Other: Bilateral shoulder examination shows positive impingement signs, 4+ out of 5 strength with supraspinatus testing, no instability Office Procedures AMB Joint Injection/Aspiration Joint Injection/Aspiration Primary Site: Right Shoulder Prep: site was prepped using aseptic technique Injected: 40 mg of, DepoMedrol, with 3 mL of and 1% plain Lidocaine Procedure: The patient tolerated the procedure well Coding 52835 - Large joint Procedure code (CPT) selection complete AMB Joint Injection/Aspiration Joint Injection/Aspiration Primary Site: Left Shoulder Prep: site was prepped using aseptic technique Injected: 40 mg of, DepoMedrol, with 3 mL of and 1% plain Lidocaine Procedure: The patient tolerated the procedure well Coding 55991 - Large joint Procedure code (CPT) selection complete Assessment & Plan Assessment & Plan (1) Neck pain on left side: Code(s): M54.2 - Cervicalgia Category: Medical (2) Impingement syndrome of left shoulder: Code(s): M75.42 - Impingement syndrome of left shoulder Category: Medical (3) Impingement of right shoulder: Code(s): M25.811 - Other specified joint disorders, right shoulder Category: Medical Plan Mr. Everett presents with progressively worsening neck pain which radiates down his left arm as well as associated left arm weakness and numbness most likely due to cervical stenosis or a disc herniation. Thus, I will send the patient for an MRI of his cervical spine for further evaluation. I will contact him once the MRI is completed. He will call me prior to that time should his symptoms worsen in any way. The patient also has bilateral shoulder pains due to impingement syndrome. The risks and benefits of bilateral shoulder cortisone injections were discussed with the patient. The patient wished to proceed. He tolerated the injections well. Feel free to call me at any time should questions regarding his orthopedic management arise. I spent 21 minutes in reviewing the patient's records and imaging studies, seeing the patient and documenting in the medical record. Orders: Orders AMB Joint Injection/Aspiration Today M25.811 - Other specified joint disorders, right shoulder MR cervical spine wo con 01/07/25 M54.2 - Cervicalgia AMB Joint Injection/Aspiration Today M75.42 - Impingement syndrome of left shoulder Coding Level of Care Code Est Pt Level 3 (64998) Complex EM visit Add On G2211 Diagnoses Neck pain on left side M54.2 Impingement syndrome of left shoulder M75.42 Impingement of right shoulder M25.811 CPT Codes Coding - 63512 Large joint: 32478 - Large joint ([id number]) Coding - 05569 Large joint: 48157 - Large joint ([id number])
[2025-01-06 09:51] VITALS: BMI 37.3
== END 2025-01-06 10:21 | disposition home or self-care (01) ==
LOC: HO.HOS 09:46
PROVIDERS: Visit Provider Orthopaedic Surgery
DX: M54.2 Cervicalgia (principal); M75.42 Impingement syndrome of left shoulder; M25.811 Other specified joint disorders, right shoulder
CPT/HCPCS: 20610; 99213

== ENCOUNTER → 2025-01-06 09:45 | Outpatient (BNVA) | payer BC, SELFPAY | PROVIDERS: Visit Provider Orthopaedic Surgery | DX: M25.811 Other specified joint disorders, right shoulder (principal); M75.42 Impingement syndrome of left shoulder; M54.2 Cervicalgia | CPT/HCPCS: 20610; J1010; J2003 ==